=== PATIENT | male | born 1955 ===

== ENCOUNTER 2024-11-22 10:07 | Inpatient (IN) | payer BC, MEDICARE, OTHER ==
[2024-11-22 10:24] LABS: Glucose,Whole Blood 120 mg/dL (70-110)
--- NOTE | 2024-11-22 10:32 | ED ---
General Adult HPI - General Chief complaint: Altered Mental Status Stated complaint: ALTERED MENTAL Time Seen by Provider: 11/22/24 10:10 Source: patient, EMS, RN notes reviewed, old records reviewed Mode of arrival: EMS Limitations: altered mental status - History of Present Illness Initial comments: 69-year-old male presenting with altered mental status. Patient was found driving erratically. Patient is unable to give a detailed history of the time course. He answers questions inappropriately. Paramedics noted stable vitals and normal blood sugar. Uncertain about drugs or alcohol. Uncertain of baseline mental status. Patient denies pain complaints. - Related Data Home Medications Medication Instructions Recorded Confirmed Unable To Assess [Unable to Assess] 11/22/24 11/22/24 Allergies Allergy/AdvReac Type Severity Reaction Status Date / Time Unable to Assess Allergy Verified 11/22/24 10:16 Review of Systems ROS Statement: Those systems with pertinent positive or pertinent negative responses have been documented in the HPI. ROS Other: All systems not noted in ROS Statement are negative. Past Medical History Past Medical History: Unable to Obtain History of Any Multi-Drug Resistant Organisms: Unobtainable Past Surgical History: Unable to Obtain Past Psychological History: Unable to Obtain Smoking Status: Unknown if ever smoked Past Alcohol Use History: Unable to Obtain Past Drug Use History: Unable to Obtain General Exam Limitations: altered mental status General appearance: alert, in no apparent distress, anxious Head exam: Present: atraumatic, normocephalic Eye exam: Present: normal appearance, PERRL Neck exam: Present: normal inspection. Absent: tenderness, meningismus Respiratory exam: Present: normal lung sounds bilaterally. Absent: respiratory distress, wheezes Cardiovascular Exam: Present: regular rate, normal rhythm GI/Abdominal exam: Present: soft. Absent: distended Extremities exam: Present: normal inspection Neurological exam: Present: alert, CN II-XII intact, motor sensory deficit (Unable to answer questions, will follow simple commands, no focal findings.). Absent: oriented X3 Psychiatric exam: Present: agitated, anxious Course Vital Signs 11/22/24 11/22/24 10:11 11:30 Temperature 99.0 F Pulse Rate 82 76 Respiratory 20 18 Rate Blood Pressure 145/88 153/92 O2 Sat by Pulse 96 97 Oximetry Medical Decision Making - Medical Decision Making Was pt. sent in by a medical professional or institution (, PA, CESSPOOL CLEANER, urgent care, hospital, or skilled nursing...) When possible be specific @ -No Did you speak to anyone other than the patient for history (EMS, parent, family, police, friend...)? What history was obtained from this source @ -No Did you review nursing and triage notes (agree or disagree)? Why? @ -I reviewed and agree with nursing and triage notes Were old charts reviewed (outside hosp., previous admission, EMS record, old EKG, old radiological studies, urgent care reports/EKG's, skilled nursing records)? Report findings @ -No old charts were reviewed Differential Altered Mental Status: Hypoglycemia, DKA, hypercapnia, ETOH, overdose, CO poisoning, trauma, myxedema coma, HTN encephalopathy, infection, encephalitis, psychosis, intercranial hemorrhage, hepatic encephalopathy, meningitis, CVA, this is not meant to be an all-inclusive list EKG interpreted by me (3pts min.). @Ventricular rate 79, WA interval 178, QRS duration 93, QTc [address] segment elevation. X-rays interpreted by me (1pt min.). @ -Chest x-ray negative for acute cardiopulmonary findings CT interpreted by me (1pt min.). @CT and CT angiography of the brain are obtained which are negative for acute findings U/S interpreted by me (1pt. min.). @ -None done What testing was considered but not performed or refused? (CT, X-rays, U/S, labs)? Why? @ -None What meds were considered but not given or refused? Why? @ -None Did you discuss the management of the patient with other professionals (professionals i.e. , PA, CESSPOOL CLEANER, lab, RT, psych nurse, sr. social media & mobile manager, yeast culture operator, teacher, aadc plans staff officer, correctional case records supervisor)? Give summary @Dr. Grover Was smoking cessation discussed for >3mins.? @ -No Was critical care preformed (if so, how long)? @ -No Were there social determinants of health that impacted care today? How? (Homelessness, low income, unemployed, alcoholism, drug addiction, transportation, low edu. Level, literacy, decrease access to med. care, fdc, rehab)? @ -No Was there de-escalation of care discussed even if they declined (Discuss DNR or withdrawal of care, Hospice)? DNR status @ -No What co-morbidities impacted this encounter? (DM, HTN, Smoking, COPD, CAD, Cancer, CVA, ARF, Chemo, Hep., AIDS, mental health diagnosis, sleep apnea, morb id obesity)? @ -None Was patient admitted / discharged? Hospital course, mention meds given and rou te, prescriptions, significant lab abnormalities, going to OR and other pertinent info. @ -69-year-old male with altered mental status. Patient is confused. Has stable vitals, nonfocal exam. Uncertain how long this patient has had an altered mental status. Workup including CBC, CMP, is unremarkable. Urinalysis urine drug screen pending. Chest x-ray, CT CT angiography unremarkable. Patient admitted to internal medicine with neurology on consult. Undiagnosed new problem with uncertain prognosis? @ -No Drug Therapy requiring intensive monitoring for toxicity (Heparin, Nitro, Insulin, Cardizem)? @ -No Were any procedures done? @ -No Diagnosis/symptom? @Altered mental status Acute, or Chronic, or Acute on Chronic? @ -[Acute Uncomplicated (without systemic symptoms) or Complicated (systemic symptoms)? @ -Default Side effects of treatment? @ -No Exacerbation, Progression, or Severe Exacerbation? @ -No Poses a threat to life or bodily function? How? (Chest pain, USA, LA, pneumonia, PE, COPD, DKA, ARF, appy, cholecystitis, CVA, Diverticulitis, Homicidal, Suicidal, threat to staff... and all critical care pts) @ -No - Lab Data Result diagrams: 11/22/24 10:25 11/22/24 10:25 Lab Results 11/22/24 11/22/24 11/22/24 Range/Units 10:23 10:25 10:25 WBC 9.38 (4.50-10.00) 10*3/uL RBC 5.41 (4.40-5.60) 10*6/uL Hgb 16.1 (13.0-17.0) g/dL Hct 48.4 (39.6-50.0) % MCV 89.5 (80.0-97.0) fL MCH 29.8 (27.0-32.0) pg MCHC 33.3 (32.0-37.0) g/dL Plt Count 309 (140-440) 10*3/uL MPV 9.8 (9.5-12.2) fL Immature Gran % (Auto) 0.6 % Neutrophils % 65.5 % Lymphocytes % 20.4 % Monocytes % 9.9 % Eosinophils % 2.9 % Basophils % 0.7 % Immature Gran # 0.06 H (0.00-0.04) 10*3/uL Neutrophils # 6.14 (1.80-7.70) 10*3/uL Lymphocytes # 1.91 (0.90-5.00) 10*3/uL Monocytes # 0.93 (0.20-1.00) 10*3/uL Eosinophils # 0.27 (0.04-0.35) 10*3/uL Basophils # 0.07 (0.00-0.10) 10*3/uL PT 10.6 (10.0-12.5) sec INR 0.9 (<1.2) APTT 22.6 (22.0-30.0) sec Sodium (137-145) mmol/L Potassium (3.5-5.1) mmol/L Chloride (98-107) mmol/L Carbon Dioxide (22-30) mmol/L Anion Gap mmol/L BUN (9-20) mg/dL Creatinine (0.66-1.25) mg/dL Est GFR (CKD-EPI)AfAm (>60 ml/min/1.73 sqM) Est GFR (CKD-EPI)NonAf (>60 ml/min/1.73 sqM) Glucose (74-99) mg/dL POC Glucose (mg/dL) 120 H (70-110) mg/dL POC Glu Community Living Specialist ID Yamile Madsen Calcium (8.4-10.2) mg/dL Total Bilirubin (0.2-1.3) mg/dL AST (17-59) U/L ALT (4-49) U/L Alkaline Phosphatase (38-126) U/L Creatine Kinase (55-170) U/L Troponin I (0.000-0.034) ng/mL Total Protein (6.3-8.2) g/dL Albumin (3.5-5.0) g/dL Serum Alcohol mg/dL 11/22/24 11/22/24 Range/Units 10:25 10:25 WBC (4.50-10.00) 10*3/uL RBC (4.40-5.60) 10*6/uL Hgb (13.0-17.0) g/dL Hct (39.6-50.0) % MCV (80.0-97.0) fL MCH (27.0-32.0) pg MCHC (32.0-37.0) g/dL Plt Count (140-440) 10*3/uL MPV (9.5-12.2) fL Immature Gran % (Auto) % Neutrophils % % Lymphocytes % % Monocytes % % Eosinophils % % Basophils % % Immature Gran # (0.00-0.04) 10*3/uL Neutrophils # (1.80-7.70) 10*3/uL Lymphocytes # (0.90-5.00) 10*3/uL Monocytes # (0.20-1.00) 10*3/uL Eosinophils # (0.04-0.35) 10*3/uL Basophils # (0.00-0.10) 10*3/uL PT (10.0-12.5) sec INR (<1.2) APTT (22.0-30.0) sec Sodium 141 (137-145) mmol/L Potassium 4.4 (3.5-5.1) mmol/L Chloride 109 H (98-107) mmol/L Carbon Dioxide 21 L (22-30) mmol/L Anion Gap 11 mmol/L BUN 14 (9-20) mg/dL Creatinine 0.91 (0.66-1.25) mg/dL Est GFR (CKD-EPI)AfAm >90 (>60 ml/min/1.73 sqM) Est GFR (CKD-EPI)NonAf 87 (>60 ml/min/1.73 sqM) Glucose 104 H (74-99) mg/dL POC Glucose (mg/dL) (70-110) mg/dL POC Glu Community Living Specialist ID Calcium 9.8 (8.4-10.2) mg/dL Total Bilirubin 1.4 H (0.2-1.3) mg/dL AST 40 (17-59) U/L ALT 49 (4-49) U/L Alkaline Phosphatase 59 (38-126) U/L Creatine Kinase 156 (55-170) U/L Troponin I <0.012 (0.000-0.034) ng/mL Total Protein 7.1 (6.3-8.2) g/dL Albumin 4.3 (3.5-5.0) g/dL Serum Alcohol <10 mg/dL Disposition Clinical Impression: Altered mental status Disposition: ADMITTED IP TO THIS HOSP Condition: Stable Is patient prescribed a controlled substance at d/c from ED?: No Referrals: None,Stated [Primary Care Provider] - 1-2 days Time of Disposition: 13:54
[2024-11-22] MEDS: SODIUM CHLORIDE 0.9% 1,000 ML IV STA (10:36)
[2024-11-22 10:55] LABS: Basophils # (A) 0.07 10*3/uL (0.00-0.10); Basophils % (A) 0.7 %; Eosinophils # (A) 0.27 10*3/uL (0.04-0.35); Eosinophils % (A) 2.9 %; HCT 48.4 % (39.6-50.0); HGB 16.1 g/dL (13.0-17.0); Lymphocytes # (A) 1.91 10*3/uL (0.90-5.00); Lymphocytes % (A) 20.4 %; MCH 29.8 pg (27.0-32.0); MCHC 33.3 g/dL (32.0-37.0); MCV 89.5 fL (80.0-97.0); Monocytes # (A) 0.93 10*3/uL (0.20-1.00); Monocytes % (A) 9.9 %; Neutrophils # (A) 6.14 10*3/uL (1.80-7.70); Neutrophils % (A) 65.5 %; Platelet Count 309 10*3/uL (140-440); RBC 5.41 10*6/uL (4.40-5.60); RDW 14.2 % (11.5-14.5); WBC 9.38 10*3/uL (4.50-10.00)
[2024-11-22 11:05] LABS: ALT 49 U/L (4-49); African American GFR (CKD) >90 (>60 ml/min/1.73 sqM); Albumin 4.3 g/dL (3.5-5.0); Anion Gap 11 mmol/L; Blood Urea Nitrogen 14 mg/dL (9-20); Calcium 9.8 mg/dL (8.4-10.2); Carbon Dioxide 21 mmol/L (22-30); Chloride 109 mmol/L (98-107); Creatine Kinase 156 U/L (55-170); Glucose 104 mg/dL (74-99); Non-African American GFR(CKD) 87 (>60 ml/min/1.73 sqM); Sodium 141 mmol/L (137-145); Total Protein 7.1 g/dL (6.3-8.2)
[2024-11-22 11:12] LABS: AST 40 U/L (17-59); Alkaline Phosphatase 59 U/L (38-126); Potassium 4.4 mmol/L (3.5-5.1)
[2024-11-22 11:16] LABS: INR 0.9 (<1.2); Partial Thromboplastin Time 22.6 sec (22.0-30.0); Prothrombin Time 10.6 sec (10.0-12.5)
--- NOTE | 2024-11-22 11:35 | XR ---
EXAMINATION TYPE: XR chest 2V DATE OF EXAM: 11/22/2024 11:30 AM COMPARISON: None CLINICAL INDICATION: Male, 69 years old with history of altered mental status, confusion TECHNIQUE: AP and lateral views FINDINGS: Heart mildly enlarged. Low lung volumes. Mild interstitial density without consolidation or pleural e ffusion. IMPRESSION: Mild cardiomegaly with hypoventilatory changes and mild interstitial density. Correlate exclude mild CHF with pulmonary vascular congestion. [facility], Workstation: [facility], 11/22/2024 11:33 AM
--- NOTE | 2024-11-22 13:10 | CT ---
EXAMINATION TYPE: CT brain wo con DATE OF EXAM: 11/22/2024 12:44 PM COMPARISON: None. CLINICAL INDICATION: Male, 69 years old with history of Neuro deficit, acute, stroke suspected, AMS TECHNIQUE: CT of the brain is performed utilizing 3 mm thick sections through the posterior fossa and 3 mm thick sections through the remaining calvarium. Study is performed within 24 hours of arrival to the hospital. Contrast used: mL of , (none if empty) CT DLP: 1190.6 mGycm, Automated exposure control for dose reduction was used. FINDINGS: No abnormal hyperdensity is present to suggest an acute intracranial hemorrhage. No mass lesion is evident. No acute infarcts are evident. Periventricular white matter hypodensity is present, likely on the bas is of chronic white matter ischemic changes. Ventricles and sulci are prominent for the patient age. Paranasal sinuses and mastoid air cells within the [id number] are clear. IMPRESSION: 1. No acute intracranial process. Follow up MRI can be performed as clinically indicated. 2. Chronic appearing periventricular white matter ischemic changes with age related atrophy. [facility], , 11/22/2024 1:08 PM
[2024-11-22] MEDS ORDERED: NALOXONE 0.4 MG/ML 1 ML VIAL IV PRN (13:55)
--- NOTE | 2024-11-22 14:06 | P.HPIM ---
History of Present Illness 69-year-old male came in with altered mental status. His confusion appears to be more mostly drug-induced or medication induced as patient is awake alert hyperactive. Patient is conversing normally but speaking nonsense. CT of the h ead showed chronic microvascular ischemic changes. CT angio the head of neck is pending urine drug screen is pending. No information about his home medications at this time patient clinically does not appear to be septic does not have any fever he does not have a leukocytosis chest x-ray showed mild cardiomegaly with hypoventilatory changes patient's above-mentioned chest x-ray findings are seco ndary to his obesity rather than CHF. Patient does not appear to have any focal neurological deficits. Unable to obtain any review of systems because of his altered mental status REVIEW OF SYSTEMS: All other systems are negative except those mentioned in the HPI PHYSICAL EXAMINATION: GENERAL: The patient is alert hyperactive unable to assess orientation, not in any acute distress. Well developed, well nourished. HEENT: Pupils are round and equally reacting to light. EOMI. No scleral icterus. No conjunctival pallor. Normocephalic, atraumatic. No pharyngeal erythema. No thyromegaly. CARDIOVASCULAR: S1 and S2 present. No murmurs, rubs, or gallops. PULMONARY: Chest is clear to auscultation, no wheezing or crackles. ABDOMEN: Soft, nontender, nondistended, normoactive bowel sounds. No palpable organomegaly. MUSCULOSKELETAL: No joint swelling or deformity. EXTREMITIES: No cyanosis, clubbing, or pedal edema. NEUROLOGICAL: Gross neurological examination did not reveal any focal deficits. SKIN: No rashes. Assessment and plan -Altered mental status appears to be drug-induced, medication induced awaiting urine drug screen. Patient is nontoxic, low possibility of sepsis or stroke. -Rule out sepsis - Rule out stroke -Obesity possibility of sleep apnea DVT prophylaxis: Lovenox Past Medical History Past Medical History: Unable to Obtain History of Any Multi-Drug Resistant Organisms: Unobtainable Past Surgical History: Unable to Obtain Past Psychological History: Unable to Obtain Smoking Status: Unknown if ever smoked Past Alcohol Use History: Unable to Obtain Past Drug Use History: Unable to Obtain Medications and Allergies Home Medications Medication Instructions Recorded Confirmed Type Unable To Assess [Unable to Assess] 11/22/24 11/22/24 History Allergies Allergy/AdvReac Type Severity Reaction Status Date / Time Unable to Assess Allergy Verified 11/22/24 10:16 Physical Exam Vitals: Vital Signs Temp Pulse Resp BP Pulse Ox 11/22/24 11:30 76 18 153/92 97 11/22/24 10:11 99.0 F 82 20 145/88 96 Intake and Output 11/21/24 11/22/24 11/22/24 22:59 06:59 14:59 Other: Weight 111.13 kg Results CBC & Chem 7: 11/22/24 10:25 11/22/24 10:25 Labs: Abnormal Lab Results - Last 24 Hours (Table) 11/22/24 11/22/24 11/22/24 Range/Units 10:23 10:25 10:25 Immature Gran # 0.06 H (0.00-0.04) 10*3/uL Chloride 109 H (98-107) mmol/L Carbon Dioxide 21 L (22-30) mmol/L Glucose 104 H (74-99) mg/dL POC Glucose (mg/dL) 120 H (70-110) mg/dL Total Bilirubin 1.4 H (0.2-1.3) mg/dL
--- NOTE | 2024-11-22 14:10 | CT ---
EXAMINATION TYPE: CT angio head neck DATE OF EXAM: 11/22/2024 12:44 PM COMPARISON: None. CLINICAL INDICATION: Male, 69 years old with history of Neuro deficit, acute, stroke suspected, AMS TECHNIQUE: CTA scan is performed with axial images are obtained, coronal and sagittal reformatted cecil ges are reviewed. MIP images created on a separate workstation and submitted for review. 3-D reconstr ucted images are not available due to ISP error. Source images are reviewed. NASCET criteria was use d in interpretation of this exam? Contrast used:65ml mL of Isovue 370 with IV Contrast, (none if empty) Oral contrast used: (none if empty) CT DLP: 1041.4 mGycm, Automated exposure control for dose reduction was used. FINDINGS: Carotid/Vascular Structures: There is a common origin of the left common carotid artery and the right subclavian artery. Vertebral arteries appear codominant. Common carotid arteries bifurcate into inte rnal and external carotid artery. Internal carotid arteries are patent to the skull base. No signific ant flow-limiting stenosis evident Cervical of James: Vertebral basilar system appears normal. Posterior cerebral vasculature is unrema rkable. Internal carotid arteries bifurcate normally into A1 and M1 segments. A2 segments are normal. The anterior communicating artery is patent. The right posterior communicating artery is patent. The left posterior communicating artery is patent. IMPRESSION: 1. No flow-limiting stenosis bilateral carotid bifurcations. 2. Normal [place] of [place] [facility], , 11/22/2024 2:08 PM
[2024-11-22] MEDS: SODIUM CHLORIDE 0.9% 1,000 ML IV SCH (16:16)
[2024-11-23 03:36] LABS: Bilirubin,Urine Negative (Negative); Blood,Urine Negative (Negative); Color,Urine Yellow; Glucose,Urine (UA) Negative (Negative); Ketones,Urine Negative (Negative); Leukocyte Esterase,Urine Negative (Negative); Nitrite,Urine Negative (Negative); PH, Urine 6.0 (5.0-8.0); Protein,Urine Trace (Negative); Urobilinogen,Urine 4.0 mg/dL (<2.0)
[2024-11-23 03:48] LABS: Specific Gravity,Urine 1.046 (1.001-1.035)
[2024-11-23 04:01] LABS: Barbiturate Screen,Urine Not Detected (NotDetected); Benzodiazepines Screen,Urine Not Detected (NotDetected); Opiate Screen,Urine Not Detected (NotDetected); Oxycodone Screen, Urine Not Detected (NotDetected); Phencyclidine Screen,Urine Not Detected (NotDetected); Tricyclic Antidepressant,Urine Not Detected (NotDetected); Urn Cannabinoid Scrn Not Detected (NotDetected)
[2024-11-23] MEDS: ENOXAPARIN 60 MG/0.6 ML SYRINGE SQ SCH (08:53)
[2024-11-23] MEDS ORDERED: OLANZapine 10 MG VIAL IM PRN (12:10)
--- NOTE | 2024-11-23 12:30 | P.CN ---
Psychiatric Consult - . Consult date: 11/23/24 Consult:: 11/23/24 11:44 IDENTIFYING DATA: This patient is a 69-year-old male, single, has no kids REASON FOR REFERRAL: Psychiatry was consulted for "AMS, labile" HISTORY OF PRESENT ILLNESS: The patient presented to the hospital on 11/22 via EMS for altered mental status. Patient apparently was driving erratically, was a poor historian when he came into the hospital was inappropriate unable to answer questions. Blood alcohol level was negative urine drug screen was negative, patient had a CT scan of the brain which did not have any significant findings. Patient's urine analysis was also negative. Patient was seen today at the bedside he had a one-to-one sitter. He appeared to be fairly obese, unkempt appearance. He was watching television. He waived back at technical document writer stated his name several times during the conversation. He was perseverating on answers repeating himself. He was inappropriate at times and appeared to be fairly impulsive with his actions. He believed that he was "65 years old" does not know his date of . He responded to the saying that "I was little". He does not know today's date. Does not know where he is currently or the situation that brought him into the hospital. He had poor attention span, was alert. He denied any depression or anxiety. Gave very short answers concrete. Denies any issues with sleep or appetite. He was not able to identify any objects in the room. He had 0 out of 3 word memory recall after 5 minutes. He was a very poor historian. At this time patient denies any suicidal or homical ideations, intent or plan. Patient denies any auditory, visual hallucinations and denies any paranoia or delusions. Patients admits to using no recreational drugs, as stated urine drug screen is negative PAST PSYCHIATRIC HISTORY: Patient was not able to provide any past psychiatric history, denies at all. PAST MEDICAL HISTORY: As per medical H&P ALLERGIES: as per EMR. CHEMICAL DEPENDENCY HISTORY: as per HPI. FAMILY PSYCHIATRIC/SUBSTANCE USE HISTORY: Denies SOCIAL HISTORY: Patient was not able to give any social history at this time. MENTAL STATUS EXAM: General Appearance: Patient appears to be obese, longer hair, unkempt appearance stated age is alert, impulsive, confused. Patient appears to have poor hygiene and grooming wearing hospital gown with fair eye contact. Behavior: Patient is lying in bed without any agitated behavior. Poor attention span, impulsive Speech: Patient's speech is concrete, repetitive, perseverating Mood/Affect: Patient reports their mood is "ok", affect is congruent Suicidality/Homicidality: Patient denies having any suicidal or homicidal ideation intent or plan. Perceptions: Patient denies any visual hallucinations and denies any auditory hallucinations Though content/process: Perseverating, fairly concrete, poor historian Memory and concentration: AOX1, to name only, poor attention span, 0 out of 3 memory recall words after 5 minutes. Cannot spell "WORLD" backwards. Not able to identify any objects, only follow simple commands Judgment and insight: Poor/impulsive IMPRESSIONS: Delirium, unknown etiology PLAN: -At this time patient DOES NOT meet criteria for inpatient psychiatric admission. -Patient DOES NOT have decision making capacity at this time and is unable to reason through and communicate/appreciate the risks, benefits and alternatives to treatment. -Delirium precautions recommended with patient including - avoiding use of narcotics and DEMO EVENT SPECIALIST sedatives, limit anticholinergic medications when possible, frequent re-orientation, minimize use of restraints, open window shades during the day and close them at night -Would recommend the following medication changes/additions: Seroquel 50 mg nightly for mood stabilization/insomnia, Seroquel 3 times daily as needed for agitation, Zyprexa IM 3 times daily as needed for severe agitation/aggression -Continue 1:1 sitter for safety -Military Professional spoke with hospitalist about patient's condition and likely the need for further workup including neurology consultation for MRI, other lab work and EEG if needed -check syphillis test, folic acid and b12 levels -Communicated plan to patient's nurse -Will continue to follow along if needed -Please contact with any questions. 11/23/24 12:13 11/23/24 12:15 11/23/24 12:19
[2024-11-23] MEDS: QUEtiapine 50 MG TAB PO SCH (21:31)
--- NOTE | 2024-11-24 04:09 | P.PN ---
Subjective Progress Note Date: 11/23/24 69-year-old male came in with altered mental status. His confusion appears to be more mostly drug-induced or medication induced as patient is awake alert hyperactive. Patient is conversing normally but speaking nonsense. CT of the head showed chronic microvascular ischemic changes. CT angio the head of neck is pending urine drug screen is pending. No information about his home medications at this time patient clinically does not appear to be septic does not have any fever he does not have a leukocytosis chest x-ray showed mild cardiomegaly with hypoventilatory changes patient's above-mentioned chest x-ray findings are secondary to his obesity rather than CHF. Patient does not appear to have any focal neurological deficits. Unable to obtain any review of systems because of his altered mental status 11/23/2024 Patient seen and evaluated in follow-up with sitter at the bedside as patient continues to have erratic behavior and refusing most treatment. Psychiatry consulted for further evaluation and altered mentation. Patient continues to be somewhat altered and confused was talking more. Will also consult neurology and appreciate input and recommendations. Case management/social work consulted as well. Patient is afebrile denies chest pain or shortness of breath. Patient is tolerating diet with no reported nausea or vomiting. Recommend follow-up labs and replace electrolytes as needed. Encourage daily hygiene as patient is odorous and unkempt. Review of systems: Constitutional: No reports of fatigue, fever, or chills Cardiovascular: No reports of chest pain or palpitations Respiratory: No reports of shortness of breath or cough GI: No reports of nausea, vomiting, or diarrhea : Patient reports was having painful urination Neurovascular: No reports of weakness or numbness All medications have been reviewed All other systems are negative except those mentioned in the HPI PHYSICAL EXAMINATION: GENERAL: The patient is alert, x 1, hyperactive, unable to assess orientation, not in any acute distress. Well developed, well nourished. Unkempt, odorous morbidly obese HEENT: Pupils are round and equally reacting to light. EOMI. No scleral icterus. No conjunctival pallor. Normocephalic, atraumatic. No pharyngeal erythema. No thyromegaly. CARDIOVASCULAR: S1 and S2 muffled PULMONARY: Chest is clear to auscultation, no wheezing or crackles. ABDOMEN: Soft, obese, nontender, nondistended, normoactive bowel sounds. No palpable organomegaly. MUSCULOSKELETAL: No joint swelling or deformity. EXTREMITIES: No cyanosis, clubbing, or pedal edema. NEUROLOGICAL: Gross neurological examination did not reveal any focal deficits. SKIN: No rashes. Assessment: -Altered mental status, possible metabolic/toxic encephalopathy appears to be drug-induced, medication induced awaiting urine drug screen. Patient is nontoxic, low possibility of sepsis or stroke. -Rule out sepsis -Rule out stroke -Obesity possibility of sleep apnea - GI prophylaxis -DVT prophylaxis: Lovenox - Full code Plan: Patient was admitted with altered mentation with erratic hyperactive behavior with concerns of possible medication or drug induced alteration although patient reports is not taking any medications and denies any drug use Patient reports, in third person, that he came here for painful urination although urinalysis was negative. When asking again patient denies any pain with urination Sitter at bedside and social work is consulted along with neurology and psychia try for further evaluation. Will follow-up on repeat labs and continue to monitor closely. Patient is not allowed to leave AGAINST MEDICAL ADVICE given his mentation. Patient is not able to make any decision making time and may need a guardian. Patient denies having any family or friends nearby and reports to living in multiple places. Unsure if patient is homeless The impression and plan of care has been dictated by Riddhi Lee, Nurse Practitioner as directed. Dr. Lenore MD I have performed a history and examination and MDM of this patient, discussed the same with the dictator, and agree with the dictator's assessment and plan as written ,documented as a scribe. Based on total visit time, I have performed more than 50% of the visit. Objective - Vital Signs Vital signs: Vital Signs Temp 97.3 F L 11/23/24 07:22 Pulse 66 11/23/24 07:22 Resp 15 11/23/24 07:22 BP 162/80 11/23/24 07:22 Pulse Ox 99 11/23/24 07:22 FiO2 Intake & Output 11/22/24 11/23/24 11/23/24 18:59 06:59 18:59 Intake Total 540 Balance 540 Weight 111.13 kg 111.13 kg Intake: Oral 540 Other: # Voids 3 - Labs CBC & Chem 7: 11/22/24 10:11/22/24 10:25 Labs: Abnormal Lab Results - Last 24 Hours (Table) 11/22/24 11/22/24 11/23/24 Range/Units 10: 10: 02:00 Immature Gran # 0.06 H (0.00-0.04) 10*3/uL Chloride 109 H (98-107) mmol/L Carbon Dioxide 21 L (22-30) mmol/L Glucose 104 H (74-99) mg/dL Total Bilirubin 1.4 H (0.2-1.3) mg/dL Ur Specific [place] 1.046 H (1.001-1.035) Urine Protein Trace H (Negative)
[2024-11-24 10:00] LABS: Magnesium 2.4 mg/dL (1.5-2.4); Vitamin B12 275.0 pg/mL (200.0-944.0)
[2024-11-24 10:11] LABS: Anion Gap 12.60 mmol/L (4.00-12.00); BUN/Creat Ratio 10.22 Ratio (12.00-20.00); Blood Urea Nitrogen 9.2 mg/dL (9.0-27.0); Calcium 9.2 mg/dL (8.7-10.3); Carbon Dioxide 22.4 mmol/L (21.6-31.8); Chloride 106 mmol/L (96-109); Glucose 99 mg/dL (70-110); Potassium 4.5 mmol/L (3.5-5.5); Sodium 141 mmol/L (135-145)
--- NOTE | 2024-11-24 11:09 | P.CNNES ---
History of Present Illness Consult date: 11/23/24 Requesting physician: Jazmin Grover Reason for Consult: Altered mental status History of Present Illness: Patient is a 69-year-old right-handed male came to the hospital by ambulance yesterday at 10:07 AM for altered mental status. Patient at present is severely confused, not able to provide history as per examination below. Per nursing staff, patient has been very confused, gets agitated. 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 Paramedics were concerned if patient was having diabetic issues. Warner states that the patient was driving erratically and he pulled him over. Upon questioning, the patient seemed confused and was diaphoretic. Patient was alert oriented x 1. Patient was able to tell his name, but answers other questions inappropriately. Patient denied any complaints at that time when asked. Patient told deputy that he has not taken his medications this morning and has not eaten. Upon EMS asking questions, patient gave different answers and seemed to grow more confused and agitated during the transport. Patient was loaded onto the stretcher and secured. Patient's blood pressure was 150/86 at the scene, respiration 20, saturation 97%. Blood glucose was 117. EKG showed sinus rhythm. Chest x-ray revealed mild cardiomegaly with hypoventilatory changes and mild interstitial density. Correlate to exclude mild CHF with pulmonary vascular congestion. CT head showed no acute intracranial process. Chronic appearing periventricular white matter ischemic changes with age-related atrophy. CTA of head and neck revealed no flow-limiting stenosis bilateral carotid bifurcations. Normal [place]. Home medications include none available. Patient has been seen by psychiatrist, diagnosed with delirium, unknown etiology. Patient does not have decision- making capacity. Patient started on Seroquel 50 mg nightly for mood stabilization/insomnia. Also committed neurology consideration for MRI, lab work and EEG. B12, folate and RPR were tested. Patient admits to having headache nodding "yes". On asking how severe it is, patient touched his head and said "that is it". Please refer to examination below in detail. Patient denies tobacco use. States he used to smoke but has quit tobacco use. "It has been a while". He did not smoke a lot before. Denies any alcohol or drug use. Review of Systems ROS unobtainable: due to mental status Past Medical History Past Medical History: Unable to Obtain History of Any Multi-Drug Resistant Organisms: Unobtainable Past Surgical History: Unable to Obtain Past Psychological History: Unable to Obtain Smoking Status: Unknown if ever smoked Past Alcohol Use History: Unable to Obtain Past Drug Use History: Unable to Obtain Medications and Allergies Home Medications Medication Instructions Recorded Confirmed Type Unable To Assess [Unable to Assess] 11/22/24 11/22/24 History Allergies Allergy/AdvReac Type Severity Reaction Status Date / Time Unable to Assess Allergy Verified 11/22/24 10:16 Physical Examination - Vital Signs Vital Signs: Vital Signs Temp Pulse Pulse Resp BP BP BP 11/23/24 14:00 97.4 F L 87 16 144/87 11/23/24 07:22 97.3 F L 66 15 162/80 11/23/24 05:30 97.5 F L 73 18 143/93 11/22/24 20:00 18 11/22/24 19:20 97.4 F L 72 18 138/65 11/22/24 18:31 97.8 F 62 18 124/82 Pulse Ox 11/23/24 14:00 100 11/23/24 07:22 99 11/23/24 05:30 99 11/22/24 20:00 11/22/24 19:20 98 11/22/24 18:31 99 Intake and Output 11/23/24 11/23/24 11/23/24 06:59 14:59 22:59 Intake Total 236 Balance 236 Intake: Oral 236 Other: # Voids 3 Patient is an elderly male, who is sitting in the recliner, in no acute distress. Patient appears slightly delirious, hyper attentive hyperalert. Patient is alert awake oriented x 1. He knows his name Juan Shields but when asked his age, patient said "shit I do not know". "I got to figure it out". Then he said "56 hours". He could not tell current building he is in or the city and would just say "I do not know". He would say random sentence like "this is little different". Then he said "he pulls up, took the car and put the thing here". Regarding date of , patient said 04/20, then said then . He appears to be hard of hearing but has some problem with comprehension. He tells me he has 3 children Gómez Recinos and Stuart. He could not tell name of the current president saying "I do not know", and said "you understand". Patient able to name simple objects like pen, pair of glasses, knuckles, ear but not the lobe. He could not repeat. Attention, concentration and fund of knowledge are all severely limited. On cranial nerve examination, pupils are equal, round and reacting to light, visual allan are full on confrontation, with no neglect on double simultaneous stimulation. Extraocular muscles are intact with no nystagmus. Face is symmetric, tongue protrudes to the midline. Palatal elevation and sensation normal, hearing is severely decreased it appears and shoulder shrug normal, facial sensation normal. On muscle strength testing, there is no pronator drift and the strength is normal in arms and legs distally and proximally. Deep tendon reflexes are symmetric trace at the biceps, 0 brachioradialis, 1 at the knees and plantars downgoing bilaterally. Sensory to touch is equal with no neglect on double simultaneous stimulation. Cerebellar function showed no ataxia for [id number] testing. No dysdiad ochokinesia. Patient did not cooperate with [id number] testing. Tone and bulk of muscles normal. Gait deferred.. On general examination, there is no carotid bruit or murmur, S1-S2 audible. Chest is clear on consultation. Abdomen is soft nontender. No organomegaly, bowel sounds present. Peripheral pulses are present. No peripheral edema. Results - Laboratory Findings CBC and BMP: 11/22/24 10:25 11/24/24 05:30 Abnormal Lab Findings: Abnormal Labs 11/22/24 11/22/24 11/22/24 10:23 10:25 10:25 Immature Gran # 0.06 H Chloride 109 H Carbon Dioxide 21 L Glucose 104 H POC Glucose (mg/dL) 120 H Total Bilirubin 1.4 H Ur Specific [place] Urine Protein 11/23/24 02:00 Immature Gran # Chloride Carbon Dioxide Glucose POC Glucose (mg/dL) Total Bilirubin Ur Specific [place] 1.046 H Urine Protein Trace H Assessment and Plan Assessment: * Acute delirium with altered mental status, with agitation. Probable acute psychosis. Exact cause is uncertain. No obvious metabolic causes identified. * X-tobacco use Plan: * MRI of the brain with and without contrast * EEG evaluate for encephalopathy, rule out any epileptiform activity * Agree with checking B12, folate, TSH, RPR. * Psychiatry is also on board. * No signs of infection at this time, with normal temperature and white cells. We will hold off on LP. * I tried to call family members to obtain collateral history. Apparently the only number listed in the demographics is disconnected number. * Neurology will follow. Thank you for the consult. Time with Patient: Greater than 30
--- NOTE | 2024-11-24 13:55 | P.PN ---
Progress Note - Text Progress Note Date: 11/24/24 Interval history: Patient was seen today for psychiatric follow-up. Patients nurse claims that the patient refused the EEG and also the MRI has been refusing medications. Patient was seen sitting at the side of his bed, he appeared to be more awake today continues to be impulsive, at times difficult to redirect. He was waving his arms around at times and pointing to his IV lying. He continues to speak nonsensically at times inappropriate answers. He knows his name, when asked about today's date he states that "it is today". He does not know the location where he is at. Continues to be impulsive and irritable at times. Very poor understanding of his condition and need for treatment and testing. Denying any auditory or visual hallucinations denies any suicidal or homicidal ideations intent or plan. MENTAL STATUS EXAM: General Appearance: Patient appears to be obese, longer hair, unkempt appearance stated age is alert, impulsive, confused. Patient appears to have improving hygiene and grooming wearing hospital gown with fair eye contact. Behavior: Patient is lying in bed without any agitated behavior. Poor attention span, impulsive and irritable Speech: Patient's speech is concrete, repetitive, perseverating Mood/Affect: Patient reports their mood is "fine ", affect is congruent Suicidality/Homicidality: Patient denies having any suicidal or homicidal ideation intent or plan. Perceptions: Patient denies any visual hallucinations and denies any auditory hallucinations Though content/process: Perseverating, fairly concrete, poor historian Memory and concentration: AOX1, to name only, poor attention span Judgment and insight: Poor/impulsive IMPRESSIONS: Delirium, unknown etiology r/o aphasia PLAN: -At this time patient DOES NOT meet criteria for inpatient psychiatric admission. -Patient DOES NOT have decision making capacity at this time and is unable to reason through and communicate/appreciate the risks, benefits and alternatives to treatment. -Delirium precautions recommended with patient including - avoiding use of narcotics and VICTIM ADVOCATE sedatives, limit anticholinergic medications when possible, frequent re-orientation, minimize use of restraints, open window shades during the day and close them at night -Would recommend the following medication changes/additions: Seroquel 50 mg nightly for mood stabilization/insomnia, Seroquel 3 times daily as needed for agitation, Zyprexa IM 3 times daily as needed for severe agitation/aggression. added order zyprexa IM prn for agitation due to procedure/testing. -Continue 1:1 sitter for safety -appreciate neurology recs and still awaiting MRI, EEG. please re-attempt eeg after partient receives prn medication - syphillis test, folic acid and b12 levels - WNL -Communicated plan to patient's nurse -Will continue to follow along if needed -Please contact with any questions.
--- NOTE | 2024-11-24 18:20 | P.PN ---
Subjective Progress Note Date: 11/24/24 Patient was seen for follow-up. Patient sitting in the bed appears comfortable. Informed him that we could not perform any test today. He then started hitting his head became agitated saying that everything is okay in here. Patient appeared very agitated in just a second. Objective - Vital Signs Vital signs: Vital Signs Temp 98.6 F 11/24/24 13:07 Pulse 77 11/24/24 13:07 Resp 17 11/24/24 13:07 BP 146/75 11/24/24 13:07 Pulse Ox 100 11/24/24 13:07 FiO2 Intake & Output 11/23/24 11/24/24 11/24/24 18:59 06:59 18:59 Intake Total 236 540 400 Balance 236 540 400 Intake: Oral 236 540 400 Other: # Voids 7 4 - Exam As above. - Labs CBC & Chem 7: 11/22/24 10:25 11/24/24 05:30 Labs: Abnormal Lab Results - Last 24 Hours (Table) 11/24/24 Range/Units 05:30 Anion Gap 12.60 H (4.00-12.00) mmol/L BUN/Creatinine Ratio 10.22 L (12.00-20.00) Ratio Assessment and Plan Assessment: * Acute delirium with altered mental status, with agitation. Probable acute psychosis. Exact cause is uncertain. No obvious metabolic causes identified. * X-tobacco use * Borderline B12/folate. Plan: * None of the tests could not be performed today. Suspect acute psychosis with agitation. * MRI of the brain with and without contrast * EEG evaluate for encephalopathy, rule out any epileptiform activity * B12 275, folate 7.7, TSH 4.5, hemoglobin A1c 5.7. RPR nonreactive. Patient's B12 and folate level are borderline. We will start replacement. * Psychiatry is also on board. * No signs of infection at this time, with normal temperature and white cells. No indication for LP at this time. * I tried to call family members to obtain collateral history. Apparently the only number listed in the demographics is disconnected number. * Neurology will follow.
[2024-11-24] MEDS: FOLIC ACID 1 MG TAB PO SCH (18:32)
[2024-11-24] MEDS: CYANOCOBALAMIN 500 MCG TAB PO SCH (18:32)
--- NOTE | 2024-11-24 22:40 | P.PN ---
Subjective Progress Note Date: 11/24/24 69-year-old male came in with altered mental status. His confusion appears to be more mostly drug-induced or medication induced as patient is awake alert hyperactive. Patient is conversing normally but speaking nonsense. CT of the head showed chronic microvascular ischemic changes. CT angio the head of neck is pending urine drug screen is pending. No information about his home medications at this time patient clinically does not appear to be septic does not have any fever he does not have a leukocytosis chest x-ray showed mild cardiomegaly with hypoventilatory changes patient's above-mentioned chest x-ray findings are secondary to his obesity rather than CHF. Patient does not appear to have any focal neurological deficits. Unable to obtain any review of systems because of his altered mental status 11/23/2024 Patient seen and evaluated in follow-up with sitter at the bedside as patient continues to have erratic behavior and refusing most treatment. Psychiatry consulted for further evaluation and altered mentation. Patient continues to be somewhat altered and confused was talking more. Will also consult neurology and appreciate input and recommendations. Case management/social work consulted as well. Patient is afebrile denies chest pain or shortness of breath. Patient is tolerating diet with no reported nausea or vomiting. Recommend follow-up labs and replace electrolytes as needed. Encourage daily hygiene as patient is odorous and unkempt. 11/24/2024 Patient is seen in follow-up today continues with the sitter at the bedside much more pleasant and having more conversation although continues to be confused and altered. Patient's vital signs are stable and patient is afebrile. Repeat labs this morning reveal a sodium of 141 with a potassium of 4.5, BUN is 9.2 with a creatinine of 0.9, hemoglobin A1c is 5.7, TSH within normal limits at 4.5, treponema screening is negative. Neurology attempted an EEG and has ordered an MRI although patient has refused and is refusing most medications and treatments. Psych to reevaluate the patient as well. IM medications given per psychiatry. Review of systems: Constitutional: No reports of fatigue, fever, or chills Cardiovascular: No reports of chest pain or palpitations Respiratory: No reports of shortness of breath or cough GI: No reports of nausea, vomiting, or diarrhea : Patient reports was having painful urination Neurovascular: No reports of weakness or numbness All medications have been reviewed All other systems are negative except those mentioned in the HPI PHYSICAL EXAMINATION: GENERAL: The patient is alert, x 1, hyperactive, unable to assess orientation, not in any acute distress. Well developed, well nourished. Unkempt, less odorous, morbidly obese HEENT: Pupils are round and equally reacting to light. EOMI. No scleral icterus. No conjunctival pallor. Normocephalic, atraumatic. No pharyngeal erythema. No thyromegaly. CARDIOVASCULAR: S1 and S2 muffled PULMONARY: Chest is clear to auscultation, no wheezing or crackles. ABDOMEN: Soft, obese, nontender, nondistended, normoactive bowel sounds. No palpable organomegaly. MUSCULOSKELETAL: No joint swelling or deformity. EXTREMITIES: No cyanosis, clubbing, or pedal edema. NEUROLOGICAL: Gross neurological examination did not reveal any focal deficits. SKIN: No rashes. Assessment: -Altered mental status, possible metabolic/toxic encephalopathy appears to be drug-induced, medication induced awaiting urine drug screen. Patient is nontoxic, low possibility of sepsis or stroke. -Ruled out sepsis as patient remains afebrile and white count is not elevated -Rule out stroke, MRI ordered and pending with nephrology following although patient is refusing -Obesity possibility of sleep apnea - GI prophylaxis -DVT prophylaxis: Lovenox - Full code Plan: Patient was admitted with altered mentation with erratic hyperactive behavior with concerns of possible medication or drug induced alteration although patient reports is not taking any medications and denies any drug use. Patient appears to be in psychosis Patient reports, in third person, that he came here for painful urination although urinalysis was negative. When asking again patient denies any pain with urination Sitter at bedside and social work is consulted and awaiting updated notes from psychiatry as well as neurology, may need IM medications to sedate for the procedure Will follow-up on repeat labs and continue to monitor closely. Patient is not allowed to leave AGAINST MEDICAL ADVICE given his mentation. Patient is not able to make any medical decisions at this time and may need a guardian. Patient denies having any family or friends nearby and reports to living in multiple places. Unsure if patient is homeless Patient refused EEG and MRI is ordered and pending, unsure if patient will be compliant and as needed IM medications have been ordered The impression and plan of care has been dictated by Riddhi Lee Nurse Pra ctitioner as directed. Dr. Lenore MD I have performed a history and examination and MDM of this patient, discussed the same with the dictator, and agree with the dictator's assessment and plan as written ,documented as a scribe. Based on total visit time, I have performed more than 50% of the visit. Objective - Vital Signs Vital signs: Vital Signs Temp 97.5 F L 11/24/24 07:05 Pulse 81 11/24/24 07:05 Resp 16 11/24/24 07:05 BP 131/87 11/24/24 07:05 Pulse Ox 98 11/24/24 07:05 FiO2 Intake & Output 11/23/24 11/24/24 11/24/24 18:59 06:59 18:59 Intake Total 236 540 200 Balance 236 540 200 Intake: Oral 236 540 200 Other: # Voids 7 4 - Labs CBC & Chem 7: 11/22/24 10:25 11/24/24 05:30 Labs: Abnormal Lab Results - Last 24 Hours (Table) 11/24/24 Range/Units 05:30 Anion Gap 12.60 H (4.00-12.00) mmol/L BUN/Creatinine Ratio 10.22 L (12.00-20.00) Ratio
[2024-11-25] MEDS: OLANZapine 10 MG VIAL IM PRN (06:56)
--- NOTE | 2024-11-25 12:02 | EEG ---
ELECTROENCEPHALOGRAM REPORT PREAMBLE: This is a 69-year-old male with altered mental status, aggression. EEG FINDINGS: This is a 21-channel digital EEG recorded with video component, utilizing 10/20 international system with referential and bipolar montages. The background consists of moderately well-developed and regulated, predominantly 6 hertz theta activity seen in bihemispheric region. Occasionally, the background reaches to 8 hertz alpha as well. The background seems to be very slightly reactive to eye opening and closing. Photic driving response was not seen. Different stages of sleep were not seen. No focal or generalized epileptiform activity was seen. No electrographic seizure was recorded. IMPRESSION: This is an abnormal EEG due to background slowing, suggestive of mild encephalopathy. No focal, lateralized or epileptiform activity was seen. MMODL / IJN: [id number] /
--- NOTE | 2024-11-25 13:46 | CT ---
EXAMINATION TYPE: CT brain wo con CT DLP: 1116.0 mGycm, Automated exposure control for dose reduction was used. DATE OF EXAM: 11/25/2024 1:40 PM COMPARISON: CT brain 11/22/2024, CTA head and neck 11/22/2024 CLINICAL INDICATION:Male, 69 years old with history of Follow up AMS, AMS TECHNIQUE: Brain: Multiple axial CT images of the brain were obtained without IV contrast. . Coronal and sagitta l reformats reviewed. FINDINGS: Brain: Extra-axial spaces: No abnormal extra-axial fluid collections. Ventricular system: Dilatation in proportion to cerebral atrophy. Cerebral parenchyma: Cerebral atrophy. No acute intraparenchymal hemorrhage or mass effect. The cleveland -white junction is well differentiated. Scattered hypoattenuating areas are seen within the periventr icular subcortical white matter. Cerebellum: Unremarkable. Mass effect: No evidence of midline shift. Intracranial vasculature: Atherosclerotic calcifications of the intracranial vessels. Soft tissues: Normal. Calvarium/osseous structures: No depressed skull fracture. Paranasal sinuses and mastoid air cells: The mastoid air cells are clear. Subcentimeter mucous retent ion cyst within the inferior left maxillary sinus. Minimal mucosal thickening of the inferior right f rontal sinus and bilateral anterior ethmoid sinuses. The remaining paranasal sinuses are clear. Visualized orbits: Orbital contents are intact. IMPRESSION: 1. No acute intracranial process or significant change from prior. 2. Cerebral atrophy with nonspecific white matter changes, likely secondary to chronic small vessel i schemic disease. [facility], , 11/25/2024 1:43 PM
--- NOTE | 2024-11-25 14:06 | P.PN ---
Progress Note - Text Progress Note Date: 11/25/24 Interval history: Patient was seen today for psychiatric follow-up. Rock Picker spoke with Dr. Isabella lema neurologist over the phone to speak about patient's treatment plan and further investigations. EEG was completed this morning and did show mild encephalopathy. Patient's nurse claims the patient continues to be unpredictable, bizarre and inappropriate in his answers. Patient did take the Seroquel dose last night. He tolerated it well. Patient was seen today laying in bed he appeared to have improvement in his hygiene and grooming, appeared to have improvement in his cooperation today and appeared to be mildly less irritable than yesterday. He denied any issues today denies any depression or anxiety. He appeared to be less unpredictable, endorsing any agitation. His answers appeared to be a bit more appropriate today he was able to identify some objects and inform science writer of what he ate for lunch today. He continues to be alert and oriented x 1 however does know that he is in "the hospital". He does not know why he is in the hospital still. He continues to have a one-to-one sitter. Impulsivity improving. Denying any auditory or visual hallucinations denies any suicidal or homicidal ideations intent or plan. MENTAL STATUS EXAM: General Appearance: Patient appears to be obese, longer hair, unkempt appearance stated age is alert, impulsive, improving compared to yesterday. Patient appears to have improving hygiene and grooming wearing hospital gown with fair eye c ontact. Behavior: Patient is lying in bed without any agitated behavior. Improving attention span, less impulsive and less irritable Speech: Patient's speech is concrete, repetitive, improving and more appropriate answers. Mood/Affect: Patient reports their mood is "ok ok", affect is congruent Suicidality/Homicidality: Patient denies having any suicidal or homicidal ideation intent or plan. Perceptions: Patient denies any visual hallucinations and denies any auditory hallucinations Though content/process: less Perseverating, fairly concrete, poor historian, more appropriate answers Memory and concentration: AOX1, he knows that he is in the hospital. He knows his correct name. Improving mildly attention span Judgment and insight: Poor/impulsive, improving mildly IMPRESSIONS: Delirium, unknown etiology, improving mildly r/o aphasia PLAN: -At this time patient DOES NOT meet criteria for inpatient psychiatric admission HOWEVER will continue to follow along tomorrow to see if patient is repsonding to treatment or not and can consider inpatient psych hospiatlization if it is felt necessary. -Patient DOES NOT have decision making capacity at this time and is unable to reason through and communicate/appreciate the risks, benefits and alternatives to treatment. -Delirium precautions recommended with patient including - avoiding use of narcotics and JEWELRY MAKING INSTRUCTOR sedatives, limit anticholinergic medications when possible, frequent re-orientation, minimize use of restraints, open window shades during the day and close them at night -Would recommend the following medication changes/additions: increase Seroquel 50 mg daily + 100 mg nightly for mood stabilization/insomnia, Seroquel 3 times daily as needed for agitation, Zyprexa IM 3 times daily as needed for severe agitation/aggression. -Continue 1:1 sitter for safety -appreciate neurology recs and eeg interpretation shows mild encephalopathy, showing background slowing. Neurology checking NMDA - receptor antibodies, send out lab. - syphillis test, folic acid and b12 levels - WNL -Communicated plan to patient's nurse -Will continue to follow along tomorrow -Please contact with any questions.
[2024-11-25] MEDS: QUEtiapine 50 MG TAB PO SCH (15:33)
--- NOTE | 2024-11-25 18:02 | P.PN ---
Subjective Progress Note Date: 11/25/24 Patient was seen for follow-up. Patient sitting in the recliner, appears comfortable. Patient's mentation much improved. He denies any headache, no dizziness. Patient still somewhat confused. Objective - Vital Signs Vital signs: Vital Signs Temp 97.6 F 11/25/24 08:00 Pulse 100 11/25/24 08:00 Resp 16 11/25/24 08:00 BP 142/77 11/25/24 08:00 Pulse Ox 97 11/25/24 08:00 FiO2 Intake & Output 11/24/24 11/25/24 11/25/24 18:59 06:59 18:59 Intake Total 640 Balance 640 Intake: Oral 640 Other: # Voids 8 2 # Bowel Movements 1 - Exam Patient is alert and awake. He is not as agitated as compared to yesterday. He was able to answer questions quite appropriately. Patient states the month is April and the year is . He could not tell what building he is in. On giving multiple prompts, patient said it is a charge. Speech is more fluent. Rest of the examination is nonfocal. - Labs CBC & Chem 7: 11/22/24 10:25 11/24/24 05:30 Assessment and Plan Assessment: * Acute delirium with altered mental status, with agitation. Probable acute psychosis. Exact cause is uncertain. No obvious metabolic causes identified. * X-tobacco use * Borderline B12/folate. Plan: * Suspect acute psychosis with agitation. * EEG was performed, which was abnormal due to background slowing, suggestive of mild encephalopathy. No focal, lateralized or epileptiform activity was seen. * MRI of the brain could not be performed, as patient's mentation is not intact, and MRI safety sheet could not be filled reliably. We will cancel MRI and perform repeat CT head. CT head showed no acute intracranial process or significant change from prior. Cerebral atrophy with nonspecific white matter changes, likely secondary to chronic small vessel ischemic disease. I personally reviewed CT head, agree with the findings. * B12 275, folate 7.7, TSH 4.5, hemoglobin A1c 5.7. RPR nonreactive. Patient's B12 and folate level are borderline. We will start replacement. * Psychiatry is also on board. Patient's mentation has improved since being on antipsychotics. Discussed with psychiatrist in detail. * No signs of infection at this time, with normal temperature and white cells. No indication for LP at this time. We will check NMDA antibodies. * I tried to call family members to obtain collateral history. Apparently the only number listed in the demographics is disconnected number. * Discussed with nursing staff and psychiatry.
[2024-11-25] MEDS: QUEtiapine 100 MG TAB PO SCH (22:16)
--- NOTE | 2024-11-26 06:16 | P.PN ---
Subjective Progress Note Date: 11/25/24 69-year-old male came in with altered mental status. His confusion appears to be more mostly drug-induced or medication induced as patient is awake alert hyperactive. Patient is conversing normally but speaking nonsense. CT of the head showed chronic microvascular ischemic changes. CT angio the head of neck is pending urine drug screen is pending. No information about his home medications at this time patient clinically does not appear to be septic does not have any fever he does not have a leukocytosis chest x-ray showed mild cardiomegaly with hypoventilatory changes patient's above-mentioned chest x-ray findings are secondary to his obesity rather than CHF. Patient does not appear to have any focal neurological deficits. Unable to obtain any review of systems because of his altered mental status 11/23/2024 Patient seen and evaluated in follow-up with sitter at the bedside as patient continues to have erratic behavior and refusing most treatment. Psychiatry consulted for further evaluation and altered mentation. Patient continues to be somewhat altered and confused was talking more. Will also consult neurology and appreciate input and recommendations. Case management/social work consulted as well. Patient is afebrile denies chest pain or shortness of breath. Patient is tolerating diet with no reported nausea or vomiting. Recommend follow-up labs and replace electrolytes as needed. Encourage daily hygiene as patient is odorous and unkempt. 11/24/2024 Patient is seen in follow-up today continues with the sitter at the bedside much more pleasant and having more conversation although continues to be confused and altered. Patient's vital signs are stable and patient is afebrile. Repeat labs this morning reveal a sodium of 141 with a potassium of 4.5, BUN is 9.2 with a creatinine of 0.9, hemoglobin A1c is 5.7, TSH within normal limits at 4.5, treponema screening is negative. Neurology attempted an EEG and has ordered an MRI although patient has refused and is refusing most medications and treatments. Psych to reevaluate the patient as well. IM medications given per psychiatry. 11/25/2024 Patient is seen in follow-up today currently sleeping as patient did receive Zyprexa this morning and underwent EEG. Report is currently pending and neurology along with psychiatry following. Patient is afebrile there is no reports of chest pain or shortness of breath. Patient is tolerating diet and has not had any nausea or vomiting. MRI is ordered and pending although unable to receive as patient is refusing and there is no other family members to prov magdiel consent and neurology ordering repeat CT brain. Initial CT was negative. Review of systems: Constitutional: No reports of fatigue, fever, or chills Cardiovascular: No reports of chest pain or palpitations Respiratory: No reports of shortness of breath or cough GI: No reports of nausea, vomiting, or diarrhea : Patient reports was having painful urination Neurovascular: No reports of weakness or numbness All medications have been reviewed All other systems are negative except those mentioned in the HPI PHYSICAL EXAMINATION: GENERAL: The patient is alert, x 1, hyperactive, unable to assess orientation, not in any acute distress. Well developed, well nourished. Unkempt, less odoro us, morbidly obese HEENT: Pupils are round and equally reacting to light. EOMI. No scleral icterus. No conjunctival pallor. Normocephalic, atraumatic. No pharyngeal erythema. No thyromegaly. CARDIOVASCULAR: S1 and S2 muffled PULMONARY: Chest is clear to auscultation, no wheezing or crackles. ABDOMEN: Soft, obese, nontender, nondistended, normoactive bowel sounds. No palpable organomegaly. MUSCULOSKELETAL: No joint swelling or deformity. EXTREMITIES: No cyanosis, clubbing, or pedal edema. NEUROLOGICAL: Gross neurological examination did not reveal any focal deficits. SKIN: No rashes. Assessment: -Altered mental status, possible metabolic/toxic encephalopathy appears to be drug-induced, medication induced awaiting urine drug screen. Patient is nontoxic, low possibility of sepsis or stroke. -Ruled out sepsis as patient remains afebrile and white count is not elevated -Rule out stroke, MRI ordered and pending with neurology following although patient is refusing and unable to obtain consent. Repeat CT is ordered -Obesity possibility of sleep apnea - GI prophylaxis -DVT prophylaxis: Lovenox - Full code Plan: Patient was admitted with altered mentation with erratic hyperactive behavior with concerns of possible medication or drug induced alteration although patient reports is not taking any medications and denies any drug use. Patient is status post EEG after receiving IM Zyprexa and will await official report. Unable to receive MRI at this time and neurology ordered repeat CT of the brain. Initial CT of the brain was negative. Patient reports, in third person, that he came here for painful urination although urinalysis was negative. When asking again patient denies any pain with urination Sitter at bedside and social work is following and awaiting updated notes from psychiatry as well as neurology, continue as needed IM medications to sedate for the procedure Will follow-up on repeat labs and continue to monitor closely. Patient is not allowed to leave AGAINST MEDICAL ADVICE given his mentation. Patient is not able to make any medical decisions at this time and may need a guardian. Patient denies having any family or friends nearby and reports to [place] in multiple places. Unsure if patient is homeless The impression and plan of care has been dictated by Riddhi Lee, Nurse Practitioner as directed. Dr. Lenore MD I have performed a history and examination and MDM of this patient, discussed the same with the dictator, and agree with the dictator's assessment and plan as written ,documented as a scribe. Based on total visit time, I have performed more than 50% of the visit. Objective - Vital Signs Vital signs: Vital Signs Temp 97.6 F 11/25/24 08:00 Pulse 100 11/25/24 08:00 Resp 16 11/25/24 08:00 BP 142/77 11/25/24 08:00 Pulse Ox 97 11/25/24 08:00 FiO2 Intake & Output 11/24/24 11/25/24 11/25/24 18:59 06:59 18:59 Intake Total 640 Balance 640 Intake: Oral 640 Other: # Voids 8 2 # Bowel Movements 1 - Labs CBC & Chem 7: 11/22/24 10:25 11/24/24 05:30 Labs: Abnormal Lab Results - Last 24 Hours (Table) 11/24/24 Range/Units 05:30 Anion Gap 12.60 H (4.00-12.00) mmol/L BUN/Creatinine Ratio 10.22 L (12.00-20.00) Ratio
--- NOTE | 2024-11-26 15:23 | P.PN ---
Subjective Progress Note Date: 11/27/24 Patient was seen for follow-up. Patient's daughter and her fianc were present at the bedside today. They provided very detailed history. 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 He to his , and they had 2 children. Patient's was his main caregiver. Patient's in 2018 from cancer, which made him more depressed. Patient's daughter has noticed that he has become more aggressive over time although he used to be very [id number] person but he is going downhill. Any changes in his environment is not good for him. He sometimes gets angry. Patient's daughter sold his house in summer 2023 and have him move near her in [facility]. This change made him worse. Patient's daughter watches his finances, pays his bills, follows medical appointments, pays his rent. In 2020 patient was diagnosed with prostate cancer but he declined any treatment. His PSA has been going up. Patient does have has history of hypertension, and his memory functions are getting worse. Patient's daughter has noticed that his communication skills are declining, uncertain if he has developed dementia. She could still talk to him although he has been worse since 2023. He often refuses his medications. Patient's daughter mentions that on 11/20/2024 he acted somewhat different, as he showed up at their house at night which he usually does not do. He did not bring his phone. He could not remember his cat's names and he was somewhat repetitive. Patient's daughter states that he does have some good days and some bad days but lately he has been forgetting name and the days. Patient's daughter further believes that this worsening is way out of his normal "bad days". This state of angriness is also more than usual. Objective - Vital Signs Vital signs: Vital Signs Temp 97.7 F 11/26/24 07:27 Pulse 75 11/26/24 08:55 Resp 18 11/26/24 07:27 BP 159/88 11/26/24 10:12 Pulse Ox 98 11/26/24 07:27 FiO2 Intake & Output 11/25/24 11/26/24 11/26/24 18:59 06:59 18:59 Other: # Voids 2 1 - Exam Patient is alert and awake. He is smiling, appears more pleasant today. De tailed testing was deferred. - Labs CBC & Chem 7: 11/27/24 05:54 11/27/24 05:54 Assessment and Plan Assessment: * Acute delirium with altered mental status, with agitation. Probable acute psychosis. Exact cause is uncertain. No obvious metabolic causes identified. * History of undiagnosed high functioning autism. * Dyslexia * X-tobacco use * Borderline B12/folate. * Prostate cancer, declining treatment of * Depression Plan: * Detailed history obtained from patient's daughter as mentioned above in detail. * Patient probably has acute psychosis with agitation. Recommend transfer to psych unit. * EEG was performed, which was abnormal due to background slowing, suggestive of mild encephalopathy. No focal, lateralized or epileptiform activity was seen. * MRI of the brain with and without contrast. Patient's daughter is now available to fill the MRI safety form. If the MRI does not reveal any abnormalities, then would recommend transfer to psychiatric unit. * B12 275, folate 7.7, TSH 4.5, hemoglobin A1c 5.7. RPR nonreactive. Patient's B12 and folate level are borderline. We will start replacement. * Psychiatry is also on board. Patient's mentation has improved since being on antipsychotics. Dr. Mahajan has mentioned that if patient does not improves, will take patient to psych unit. * No signs of infection at this time, with normal temperature and white cells. No indication for LP at this time. Patient will not cooperate with LP either. * Await NMDA antibodies. * Discussed with nursing staff and psychiatry. * Dr. Barber Thomas to resume neurology service in the morning.
[2024-11-26] MEDS: THIAMINE 100 MG TAB PO SCH (17:26)
--- NOTE | 2024-11-26 17:44 | P.CN ---
Psychiatric Consult - . Consult date: 11/26/24 Consult:: 11/26/24 17:38 MENTAL STATUS EXAM: General Appearance: Patient appears to be obese, longer hair, unkempt appearance stated age is alert, impulsive, urinating on himself. . Behavior: Patient is lying in bed and becomes agitated when asked simple questions that he can not answer. Speech: Patient's speech is concrete, repetitive, Mood/Affect:affect is labile and he is irritable and has no idea what his mood is. Suicidality/Homicidality: Patient denies having any suicidal or homicidal ideation intent or plan. Perceptions: Patient denies any visual hallucinations and denies any auditory hallucinations Though content/process: less Perseverating, fairly concrete, poor historian, more appropriate answers Memory and concentration: AOX1, he knows that he is in the hospital. He knows his correct name.He could not answer the question as to what day this is. He just recited the days of the week but could not pick one to guess or even remember what the question was or what his birthday was. Judgment and insight: Poor/impulsive, improving mildly IMPRESSIONS: This does not look like any psychiatric disorder that I have seen. 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 He does not seem depressed or consistently anything. Perhaps a bizarre conversion disorder, though unlikely Delirium, unknown etiology, improving mildly r/o aphasia PLAN: -At this time patient DOES NOT meet criteria for inpatient psychiatric admission HOWEVER will continue to follow along tomorrow to see if patient is repsonding to treatment or not and can consider inpatient psych hospiatlization if it is felt necessary. -Patient DOES NOT have decision making capacity at this time and is unable to reason through and communicate/appreciate the risks, benefits and alternatives to treatment. -Delirium precautions recommended with patient including - avoiding use of narcotics and RADIOCOMMUNICATIONS TECHNICIAN sedatives, limit anticholinergic medications when possible, frequent re-orientation, minimize use of restraints, open window shades during the day and close them at night -Would recommend the following medication changes/additions: increase Seroquel 50 mg daily + 100 mg nightly for mood stabilization/insomnia, Seroquel 3 times daily as needed for agitation, Zyprexa IM 3 times daily as needed for severe agitation/aggression. -Continue 1:1 sitter for safety -appreciate neurology recs and eeg interpretation shows mild encephalopathy, showing background slowing. Neurology checking NMDA - receptor antibodies, send out lab. - syphillis test, folic acid and b12 levels - WNL -Communicated plan to patient's nurse -Will continue to follow along tomorrow -Please contact with any questions.
[2024-11-27 10:00] LABS: Basophils # (A) 0.07 X 10*3/uL (0.00-0.10); Basophils % (A) 1.1 %; Eosinophils # (A) 0.28 X 10*3/uL (0.04-0.35); Eosinophils % (A) 4.4 %; HCT 47.8 % (39.6-50.0); HGB 15.4 g/dL (13.0-17.0); Immature Grans, Automated 0.90 %; Lymphocytes # (A) 2.12 X 10*3/uL (0.90-5.00); Lymphocytes % (A) 33.5 %; MCH 29.3 pg (27.0-32.0); MCHC 32.2 g/dL (32.0-37.0); MCV 90.9 FL (80.0-97.0); Monocytes # (A) 0.68 X 10*3/uL (0.20-1.00); Monocytes % (A) 10.7 %; NRBC Per 100 WBC 0 X 10*3/uL (0.00-0.01); Neutrophils # (A) 3.12 X 10*3/uL (1.80-7.70); Neutrophils % (A) 49.4 %; Platelet Count 280 X 10*3/uL (140-440); RBC 5.26 X 10*6/uL (4.40-5.60); RDW 13.8 % (11.5-14.5); WBC 6.33 X 10*3/uL (4.50-10.00)
[2024-11-27 10:16] LABS: ALT 53 U/L (10-49); AST 39 U/L (14-35); Albumin 3.8 g/dL (3.8-4.9); Albumin/Globulin Ratio 1.73 Ratio (1.60-3.17); Alkaline Phosphatase 55 U/L (41-126); Anion Gap 11.40 mmol/L (4.00-12.00); BUN/Creat Ratio 12.80 Ratio (12.00-20.00); Blood Urea Nitrogen 12.8 mg/dL (9.0-27.0); Calcium 8.9 mg/dL (8.7-10.3); Carbon Dioxide 22.6 mmol/L (21.6-31.8); Chloride 108 mmol/L (96-109); Globulin 2.2 g/dL (1.6-3.3); Glucose 98 mg/dL (70-110); Potassium 4.7 mmol/L (3.5-5.5); Sodium 142 mmol/L (135-145); Total Protein 6.0 g/dL (6.2-8.2)
--- NOTE | 2024-11-27 11:20 | PN ---
PROGRESS NOTE DATE OF SERVICE: 11/26/2024 SUBJECTIVE: This 69-year-old gentleman was admitted with change in mental status, being closely monitored at this time. No chest pain. No palpitation. OBJECTIVE: VITAL SIGNS: Pulse is 83, blood pressure is 151/70, respirations 17. CHEST: Clear to auscultation. ABDOMEN: Soft. LABORATORY DATA: Reviewed. ASSESSMENT: 1. Change in mental status, metabolic toxic encephalopathy, possible drug induced. 2. Possible acute psychosis versus delirium. 3. Possible dementia. 4. Rule out sepsis. 5. Rule out stroke. 6. Multiple complex medical issues. RECOMMENDATIONS: Recommend to continue current management and treatment. EEG has been done. Neurology following the patient closely. MRI could not be performed. CT of brain has been done showed no acute abnormality. We will continue recommend to continue current management. Guarded prognosis. Further recommendations to follow. MMODL / IJN: [id number] /
[2024-11-27] MEDS: MULTIVITAMINS, THERA 1 EACH TAB PO SCH (13:15)
--- NOTE | 2024-11-27 22:51 | PN ---
PROGRESS NOTE DATE OF SERVICE: 11/27/2024 SUBJECTIVE: This is a 69-year-old gentleman, who was admitted with change in mental status, possible features of psychosis. At this time, the patient has pressured speech. Psychiatry and Neurology are following the patient closely. CT scan of the brain repeated did not show any acute abnormality. PAST MEDICAL HISTORY: Reviewed. REVIEW OF SYSTEMS: 14-point review of systems is negative except as mentioned earlier. CURRENT MEDICATIONS: Reviewed. PHYSICAL EXAMINATION: VITAL SIGNS: Pulse 91, blood pressure 130/70, respirations 18. CHEST: Clear to auscultation. CARDIOVASCULAR: S1, S2. ABDOMEN: Soft. NERVOUS SYSTEM: No focal deficits. LABORATORY DATA: Reviewed. ASSESSMENT: 1. Change in mental status and possible acute metabolic toxic encephalopathy, possibly drug-induced. 2. Possible psychosis versus delirium. 3. Possible dementia. 4. Sepsis, ruled out. 5. Stroke, ruled out. 6. Multiple complex medical issues. RECOMMENDATIONS: Recommend to continue current medications, and continue symptomatic treatment. Otherwise, the patient is on Seroquel. I would recommend Psychiatry to closely follow the patient and to adjust the medications. Otherwise, follow closely with Neurology. MRI has been ordered. Guarded prognosis because of multiple complex medical issues. Further recommendations to follow. I recommend sedimentation rate and CRP also. MMODL / IJN: [id number] /
--- NOTE | 2024-11-28 03:11 | P.PN ---
Subjective Progress Note Date: 11/26/24 Patient was seen for follow-up. patient continues to be acting agitated. He is pacing in the room. He denies any headache or dizziness. Patient becomes irritable easily. Objective - Vital Signs Vital signs: Vital Signs Temp 98.3 F 11/27/24 20:00 Pulse 77 11/27/24 20:00 Resp 18 11/27/24 20:00 BP 146/84 11/27/24 20:00 Pulse Ox 96 11/27/24 20:00 FiO2 Intake & Output 11/27/24 11/27/24 11/28/24 06:59 18:59 06:59 Intake Total 236 Balance 236 Intake: Oral 236 Other: # Voids 3 4 - Exam Patient is alert and awake. patient becomes irritable easily. He continues to be aphasic, with fragmentry speech. He often states "do you understand" with irritability. - Labs CBC & Chem 7: 11/27/24 05:54 11/27/24 05:54 Labs: Abnormal Lab Results - Last 24 Hours (Table) 11/27/24 11/27/24 Range/Units 05:54 05:54 Immature Gran # 0.06 H (0.00-0.04) X 10*3/uL AST 39 H (14-35) U/L ALT 53 H (10-49) U/L Total Protein 6.0 L (6.2-8.2) g/dL Assessment and Plan Assessment: * Acute delirium with altered mental status, with agitation. Probable acute psychosis. Exact cause is uncertain. No obvious metabolic causes identified. * History of undiagnosed high functioning autism. * Dyslexia * X-tobacco use * Borderline B12/folate. * Prostate cancer, declining treatment * Depression Plan: * Suspect acute psychosis with agitation. * EEG was performed, which was abnormal due to background slowing, suggestive of mild encephalopathy. No focal, lateralized or epileptiform activity was seen. * MRI of the brain could not be performed, as patient's mentation is not intact, and MRI safety sheet could not be filled reliably. We will cancel MRI and perform repeat CT head. CT head showed no acute intracranial process or significant change from prior. Cerebral atrophy with nonspecific white matter changes, likely secondary to chronic small vessel ischemic disease. I personally reviewed CT head, agree with the findings. * B12 275, folate 7.7, TSH 4.5, hemoglobin A1c 5.7. RPR nonreactive. Patient's B12 and folate level are borderline. We will start replacement. * Psychiatry is also on board. Patient's mentation has improved since being on antipsychotics. Discussed with psychiatrist in detail. * No signs of infection at this time, with normal temperature and white cells. No indication for LP at this time. We will check NMDA antibodies. * I tried to call family members to obtain collateral history. Apparently the only number listed in the demographics is disconnected number. * Discussed with nursing staff and psychiatry.
[2024-11-28] MEDS: LORazepam 1 MG/0.5 ML VIAL IV ONE (15:57)
--- NOTE | 2024-11-28 16:19 | MR ---
INDICATION: Patient age:Male; 69 years old; Reason for study: AMS; PHH. COMPARISON: CT brain 11/25/2024, 11/22/2024, CT head and neck 11/22/2024 TECHNIQUE: Multi planar, multi sequence imaging was performed through the brain. The patient was then given 11 cc of Gadobutrol intravenously and multi planar, T1 fat-saturation images were obtained. FINDINGS: Motion degraded examination. Mild cerebral atrophy with prominence of the ventricular system and basal cisterns. The cleveland-white ju nctions are unremarkable. Diffusion-weighted imaging shows no evidence of restricted diffusion to sug gest acute/subacute infarct. Intracranial arterial flow voids are maintained. Midline structures show no abnormality. Confluent areas of high T2/FLAIR signal intensity are seen within the periventricula r white matter. Couple additional subcortical white matter foci. The susceptibility weighted images d o not reveal any evidence for micro-hemorrhage. After administration of gadolinium, no abnormal enhan cement is seen. The bone marrow signal is within normal limits. The paranasal sinuses and globes are unremarkable. IMPRESSION: 1. No evidence of intracranial mass, acute/subacute infarct, or abnormal enhancement. 2. Nonspecific white matter changes, likely related to small vessel ischemic disease. Demyelinating d isease, chronic migraines, vasculitis, Lyme disease are other considerations. [facility], , 11/28/2024 4:16 PM
[2024-11-29] MEDS: ACETAMINOPHEN TAB 325 MG TAB PO PRN (03:15)
--- NOTE | 2024-11-29 04:52 | P.PN ---
Subjective Progress Note Date: 11/28/24 69-year-old male came in with altered mental status. His confusion appears to be more mostly drug-induced or medication induced as patient is awake alert hyperactive. Patient is conversing normally but speaking nonsense. CT of the head showed chronic microvascular ischemic changes. CT angio the head of neck is pending urine drug screen is pending. No information about his home medications at this time patient clinically does not appear to be septic does not have any fever he does not have a leukocytosis chest x-ray showed mild cardiomegaly with hypoventilatory changes patient's above-mentioned chest x-ray findings are secondary to his obesity rather than CHF. Patient does not appear to have any focal neurological deficits. Unable to obtain any review of systems because of his altered mental status 11/23/2024 Patient seen and evaluated in follow-up with sitter at the bedside as patient continues to have erratic behavior and refusing most treatment. Psychiatry consulted for further evaluation and altered mentation. Patient continues to be somewhat altered and confused was talking more. Will also consult neurology and appreciate input and recommendations. Case management/social work consulted as well. Patient is afebrile denies chest pain or shortness of breath. Patient is tolerating diet with no reported nausea or vomiting. Recommend follow-up labs and replace electrolytes as needed. Encourage daily hygiene as patient is odorous and unkempt. 11/24/2024 Patient is seen in follow-up today continues with the sitter at the bedside much more pleasant and having more conversation although continues to be confused and altered. Patient's vital signs are stable and patient is afebrile. Repeat labs this morning reveal a sodium of 141 with a potassium of 4.5, BUN is 9.2 with a creatinine of 0.9, hemoglobin A1c is 5.7, TSH within normal limits at 4.5, treponema screening is negative. Neurology attempted an EEG and has ordered an MRI although patient has refused and is refusing most medications and treatments. Psych to reevaluate the patient as well. IM medications given per psychiatry. 11/25/2024 Patient is seen in follow-up today currently sleeping as patient did receive Zyprexa this morning and underwent EEG. Report is currently pending and neurology along with psychiatry following. Patient is afebrile there is no reports of chest pain or shortness of breath. Patient is tolerating diet and has not had any nausea or vomiting. MRI is ordered and pending although unable to receive as patient is refusing and there is no other family members to prov magdile consent and neurology ordering repeat CT brain. Initial CT was negative. 11/28/2024 Patient is seen in follow-up today mentation is improving although continues with confusion. Apparently there is a daughter who is working on filing a missing reports claim that she has not talked to him in over a week. Patient is scheduled for MRI today and appears somewhat more agreeable. Continue current medication regimen and psychiatry following as well. Psychiatry reporting he does not meet criteria for psychiatric unit and also does not have capacity for decision-making. Patient is afebrile denies chest pain or shortness of breath. Patient has been tolerating diet with no reported nausea or vomiting. Patient has been up and walking to the bathroom independently. Review of systems: Constitutional: No reports of fatigue, fever, or chills Cardiovascular: No reports of chest pain or palpitations Respiratory: No reports of shortness of breath or cough GI: No reports of nausea, vomiting, or diarrhea : Denies pain or burning or frequency with urination Neurovascular: No reports of weakness or numbness All medications have been reviewed PHYSICAL EXAMINATION: GENERAL: The patient is alert, x 1, hyperactive, unable to assess orientation, not in any acute distress. Well developed, well nourished. Unkempt, less odorous, morbidly obese HEENT: Pupils are round and equally reacting to light. EOMI. No scleral icterus. No conjunctival pallor. Normocephalic, atraumatic. No pharyngeal erythema. No thyromegaly. CARDIOVASCULAR: S1 and S2 muffled PULMONARY: Chest is clear to auscultation, no wheezing or crackles. ABDOMEN: Soft, obese, nontender, nondistended, normoactive bowel sounds. No palpable organomegaly. MUSCULOSKELETAL: No joint swelling or deformity. EXTREMITIES: No cyanosis, clubbing, or pedal edema. NEUROLOGICAL: Gross neurological examination did not reveal any focal deficits. SKIN: No rashes. Assessment: -Altered mental status, possible metabolic/toxic encephalopathy appears to be drug-induced, medication induced UDS was negative. Patient is nontoxic, low possibility of sepsis or stroke. -Ruled out sepsis as patient remains afebrile and white count is not elevated -Ruled out stroke, MRI negative today 11/28/2024 -Obesity possibility of sleep apnea - GI prophylaxis -DVT prophylaxis: Lovenox - Full code Plan: Patient was admitted with altered mentation with erratic hyperactive behavior with concerns of possible medication or drug induced alteration although patient reports is not taking any medications and denies any drug use. Patient is status post EEG after receiving IM Zyprexa and there was some slowing although no epileptiform discharges or abnormalities noted. Patient is status post MRI of the brain which is negative for acute process and CVA ruled out Apparently there is a daughter that was looking for him as he was missing and awaiting MRI results. Psychiatry reevaluated and reports she does not meet inpatient criteria and they do not treat delirium recommending outpatient follow-up Will discuss further with neurology and social work regarding discharge planning. Awaiting a safe discharge plan and to discuss further with daughter. Patient is not allowed to leave AGAINST MEDICAL ADVICE given his mentation. Patient is not able to make any medical decisions at this time and may need a guardian. Overall prognosis is guarded The impression and plan of care has been dictated by Riddhi Lee, Nurse Practitioner as directed. Dr. Bob MD I have performed a history and examination and MDM of this patient, discussed the same with the dictator, and agree with the dictator's assessment and plan as written ,documented as a scribe. Based on total visit time, I have performed more than 50% of the visit. Objective - Vital Signs Vital signs: Vital Signs Temp 97.3 F L 11/28/24 07:04 Pulse 72 11/28/24 07:04 Resp 17 11/28/24 07:04 BP 141/78 11/28/24 07:04 Pulse Ox 98 11/28/24 07:04 FiO2 Intake & Output 11/27/24 11/28/24 11/28/24 18:59 06:59 18:59 Intake Total 236 118 Balance 236 118 Intake: Oral 236 118 Other: Voiding Method Toilet # Voids 4 2 - Labs CBC & Chem 7: 11/27/24 05:54 11/27/24 05:54
[2024-11-29 07:59] VITALS: BMI 31.4
--- NOTE | 2024-11-29 12:13 | P.PN ---
Progress Note - Text Pain management has been consulted for lumbar puncture because of mental status change. On reviewing the chart, patient received Lovenox at 8:47 AM. LP cannot be done before 8:47 PM. Asked the nurse to call the ordering physician to let us know if this LP can be done tomorrow by anesthesia or it is an emergency that needs to be done tonight by on-call anesthesiologist. No pain clinic tomorrow. Waiting for reply from ordering physician.
--- NOTE | 2024-11-29 13:13 | P.CN ---
Psychiatric Consult - . Consult date: 11/29/24 Consult:: 11/29/24 13:00 Consult follow-up IDENTIFYING DATA: This patient is a 69-year-old male, , with a daughter REASON FOR REFERRAL: Psychiatry was consulted for altered mental status with labile behavior HISTORY OF PRESENT ILLNESS: The patient presented to the hospital on 11/22 via EMS for altered mental status. Patient apparently was driving erratically, was a poor historian when he came into the hospital was inappropriate unable to answer questions. Upon leaving the room the patient was sitting on the bed awake and alert. The patient was very limited in answering my questions. He notes that he is not depressed or anxious. He notes that he is not suicidal or homicidal. He notes that he is not psychotic or hearing voices. When asking him how he got to the hospital he notes "I do not know". When asking if he has ever been diagnosed with mental health he denies this. He denies ever being on any mental health medications. He presented telling me how to turn on the light and how to turn it off correctly. Most the time when he responded to different questions he did not have somewhat of a word salad. He was unable to identify time or place but was able to identify himself. Reviewing notes it is indicated that the patient has a history of high functioning autism. His daughter also noted that note notes that he has had a steady decline in functioning after his . MENTAL STATUS EXAM: General Appearance: Patient appears to be stated age is alert. Patient appears to have slightly disheveled hygiene and grooming wearing hospital gown with good eye contact. Behavior: The patient was sitting on the side of the bed and appeared to be somewhat hyperactive and limited cooperative Speech: Patient's speech is fluent and nonpressured. Mood/Affect: Patient reports their mood is "agitated", affect is congruent Suicidality/Homicidality: Patient denies having any suicidal or homicidal ideation intent or plan. Perceptions: Patient denies any visual hallucinations and denies any auditory hallucinations Though content/process: There is no evidence of any delusional thought content and thought process is linear and goal-directed. Memory and concentration: The patient was not AO x 3 but AO x 1 Judgment and insight: Poor/Poor IMPRESSIONS: Delirium, unknown etiology versus dementia PLAN: -At this time patient DOES NOT meet criteria for inpatient psychiatric admission. -Patient DOES NOT have decision making capacity at this time and is unable to reason through and communicate/appreciate the risks, benefits and alternatives to treatment. -Delirium precautions recommended with patient including - avoiding use of narcotics and EDGER RUNNER sedatives, limit anticholinergic medications when possible, frequent re-orientation, minimize use of restraints, open window shades during the day and close them at night -Would recommend the following medication changes/additions: Seroquel 50 mg daily + 100 mg nightly for mood stabilization/insomnia Seroquel 3 times daily as needed for agitation Zyprexa IM 3 times daily as needed for severe agitation/aggression. -Continue 1:1 sitter for safety -Communicated plan to patient's nurse -Psychiatry will sign off at this time -Please contact with any questions. 11/29/24 13:02
--- NOTE | 2024-11-29 13:17 | P.PN ---
Subjective Progress Note Date: 11/29/24 Principal diagnosis: Patient seen and examined at bedside today. Talked to patient's daughter who provided complete history. Patient was born with undocumented high functioning autism and he cannot read and write. 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 Patient's was his main caregiver who in 2018 from cancer which made him more depressed. Patient now lives in [facility], 10 minutes away from his daughter. Patient retired a year ago and since then her daughter has notic ed that the patient's health is declining. Patient was also diagnosed with prostate cancer in 2020 along with hypertension but he does not take his medications. A week ago the patient started acting somewhat different, he did not go to the bank as regularly as he would before which made his daughter suspicious. His daughter went to check up on him and found out that the patient's car was not there and the patient had left home. A missing person report was then filed by her daughter and then she found out that the patient had been admitted here at our facility. Brain MRI obtained yesterday shows no evidence of intracranial mass, acute/subacute infarct or abnormal enhancement, nonspecific white matter changes likely related to small vessel ischemic disease Objective - Vital Signs Vital signs: Vital Signs Temp 97.5 F L 11/29/24 02:56 Pulse 80 11/29/24 07:28 Resp 17 11/29/24 07:28 BP 128/81 11/29/24 07:28 Pulse Ox 100 11/29/24 07:28 FiO2 Intake & Output 11/28/24 11/29/24 11/29/24 18:59 06:59 18:59 Intake Total 358 Balance 358 Weight 111.13 kg Intake: Oral 358 Other: Voiding Method Toilet # Voids 2 1 # Bowel Movements 0 - Exam Patient is alert and awake. He is not as agitated. He was unable to answer questions quite appropriately and kept answering "for 4 days " to all questions. Patient able to name simple objects like watch, pen used to write, pair of glasses. On muscle strength testing, there is no pronator drift and the strength is normal in arms and legs distally and proximally. Deep tendon reflexes are symmetric trace at the biceps, 0 brachioradialis, 1 at the knees and plantars indeterminate Sensory to touch is equal Cerebellar function showed no ataxia for [id number] testing. No dysdiadochokinesia. - Labs CBC & Chem 7: 11/27/24 05:54 11/27/24 05:54 Assessment and Plan Assessment: Acute delirium with altered mental status, with agitation. Probable acute psychosis. Exact cause is uncertain. No obvious metabolic causes identified.---psychosis is improved but continues to be altered History of undiagnosed high functioning autism. Dyslexia X-tobacco use Borderline B12/folate. Prostate cancer, declining treatment of Depression Plan: Detailed history obtained from patient's daughter as mentioned above in detail. Pain management consulted for lumbar puncture, consent obtained from daughter Obtain CSF studies and HIV, Herpes and JHOANA testing EEG was performed, which was abnormal due to background slowing, suggestive of mild encephalopathy. No focal, lateralized or epileptiform activity was seen. Brain MRI obtained yesterday shows no evidence of intracranial mass, acute/subacute infarct or abnormal enhancement, nonspecific white matter changes likely related to small vessel ischemic disease B12 275, folate 7.7, TSH 4.5, hemoglobin A1c 5.7. RPR nonreactive. Patient's B12 and folate level are borderline. Continue folic acid 1 mg p.o. daily, cyanocobalamin 1000 mcg p.o. daily Patient probably has acute psychosis with agitation. Psychiatry is also on board. Patient's mentation has improved since being on antipsychotics. Per Dr. García's notes, Dr. Garner has mentioned that if patient does not improves, will take patient to psych unit. But current psychiatrist states patient is not inpatient candidate and they signed off. No signs of infection at this time, with normal temperature and white cells. Await NMDA antibodies. Discussed with nursing staff Dictation was produced using [employer] dictation software. please excuse any grammatical, word or spelling errors. Gemma Gibbs MD PGY-2 IM I personally examined the patient with the resident and obtained history. Will attempt to pursue with CSF study since the patient is more cooperative to rule out any LICENSED PROFESSIONAL COUNSELOR infection. MRI Brain is negative for acute process. I agree the resident's assessment and plan. Barber Thomas M.D. Time with Patient: Less than 30
[2024-11-29 19:20] LABS: HIV 2 AB Non-Reactive (Non-Reactive); HIV AB P24 Non-Reactive (Non-Reactive); HIV P24 AG Non-Reactive (Non-Reactive)
[2024-11-30 09:30] LABS: ALT 69 U/L (4-49); AST 47 U/L (17-59); African American GFR (CKD) >90 (>60 ml/min/1.73 sqM); Albumin 4.1 g/dL (3.5-5.0); Albumin/Globulin Ratio 1.5; Alkaline Phosphatase 65 U/L (38-126); Anion Gap 14 mmol/L; Blood Urea Nitrogen 11 mg/dL (9-20); Calcium 9.9 mg/dL (8.4-10.2); Carbon Dioxide 21 mmol/L (22-30); Chloride 105 mmol/L (98-107); Globulin 2.7 g/dL; Glucose 103 mg/dL (74-99); Magnesium 2.3 mg/dL (1.6-2.3); Non-African American GFR(CKD) >90 (>60 ml/min/1.73 sqM); Potassium 4.4 mmol/L (3.5-5.1); Sodium 140 mmol/L (137-145); Total Protein 6.8 g/dL (6.3-8.2)
--- NOTE | 2024-11-30 09:58 | P.PN ---
Subjective Progress Note Date: 11/29/24 69-year-old male came in with altered mental status. His confusion appears to be more mostly drug-induced or medication induced as patient is awake alert hyperactive. Patient is conversing normally but speaking nonsense. CT of the head showed chronic microvascular ischemic changes. CT angio the head of neck is pending urine drug screen is pending. No information about his home medications at this time patient clinically does not appear to be septic does not have any fever he does not have a leukocytosis chest x-ray showed mild cardiomegaly with hypoventilatory changes patient's above-mentioned chest x-ray findings are secondary to his obesity rather than CHF. Patient does not appear to have any focal neurological deficits. Unable to obtain any review of systems because of his altered mental status 11/23/2024 Patient seen and evaluated in follow-up with sitter at the bedside as patient continues to have erratic behavior and refusing most treatment. Psychiatry consulted for further evaluation and altered mentation. Patient continues to be somewhat altered and confused was talking more. Will also consult neurology and appreciate input and recommendations. Case management/social work consulted as well. Patient is afebrile denies chest pain or shortness of breath. Patient is tolerating diet with no reported nausea or vomiting. Recommend follow-up labs and replace electrolytes as needed. Encourage daily hygiene as patient is odorous and unkempt. 11/24/2024 Patient is seen in follow-up today continues with the sitter at the bedside much more pleasant and having more conversation although continues to be confused and altered. Patient's vital signs are stable and patient is afebrile. Repeat labs this morning reveal a sodium of 141 with a potassium of 4.5, BUN is 9.2 with a creatinine of 0.9, hemoglobin A1c is 5.7, TSH within normal limits at 4.5, treponema screening is negative. Neurology attempted an EEG and has ordered an MRI although patient has refused and is refusing most medications and treatments. Psych to reevaluate the patient as well. IM medications given per psychiatry. 11/25/2024 Patient is seen in follow-up today currently sleeping as patient did receive Zyprexa this morning and underwent EEG. Report is currently pending and neurology along with psychiatry following. Patient is afebrile there is no reports of chest pain or shortness of breath. Patient is tolerating diet and has not had any nausea or vomiting. MRI is ordered and pending although unable to receive as patient is refusing and there is no other family members to prov magdiel consent and neurology ordering repeat CT brain. Initial CT was negative. 11/28/2024 Patient is seen in follow-up today mentation is improving although continues with confusion. Apparently there is a daughter who is working on filing a missing reports claim that she has not talked to him in over a week. Patient is scheduled for MRI today and appears somewhat more agreeable. Continue current medication regimen and psychiatry following as well. Psychiatry reporting he does not meet criteria for psychiatric unit and also does not have capacity for decision-making. Patient is afebrile denies chest pain or shortness of breath. Patient has been tolerating diet with no reported nausea or vomiting. Patient has been up and walking to the bathroom independently. 11/29/2024 Patient is seen and evaluated in follow-up today is pleasant and appropriate and cooperative with care. MRI was negative and neurology following recommending possible LP although Lovenox was given. Will consult pain management/anesthesia for possible LP and patient is agreeable and daughter aware. Social work audi aguila along with psychiatry and psychiatry has signed off recommending that patient does not meet inpatient criteria. Will discuss further with social work once LP is performed to discuss discharge planning and treatment plan moving forward. Review of systems: Constitutional: No reports of fatigue, fever, or chills Cardiovascular: No reports of chest pain or palpitations Respiratory: No reports of shortness of breath or cough GI: No reports of nausea, vomiting, or diarrhea : Denies pain or burning or frequency with urination Neurovascular: No reports of weakness or numbness All medications have been reviewed PHYSICAL EXAMINATION: GENERAL: The patient is alert, x 1, hyperactive, unable to assess orientation, not in any acute distress. Well developed, well nourished. Unkempt, less odorous, morbidly obese HEENT: Pupils are round and equally reacting to light. EOMI. No scleral icterus. No conjunctival pallor. Normocephalic, atraumatic. No pharyngeal erythema. No thyromegaly. CARDIOVASCULAR: S1 and S2 muffled PULMONARY: Chest is clear to auscultation, no wheezing or crackles. ABDOMEN: Soft, obese, nontender, nondistended, normoactive bowel sounds. No palpable organomegaly. MUSCULOSKELETAL: No joint swelling or deformity. EXTREMITIES: No cyanosis, clubbing, or pedal edema. NEUROLOGICAL: Gross neurological examination did not reveal any focal deficits. SKIN: No rashes. Assessment: -Altered mental status, possible metabolic/toxic encephalopathy appears to be drug-induced, medication induced UDS was negative. Patient is nontoxic, low possibility of sepsis or stroke. -Ruled out sepsis as patient remains afebrile and white count is not elevated -Ruled out stroke, MRI negative today 11/28/2024 -Obesity possibility of sleep apnea - GI prophylaxis -DVT prophylaxis: Lovenox - Full code Plan: Patient was admitted with altered mentation with erratic hyperactive behavior with concerns of possible medication or drug induced alteration although patient reports is not taking any medications and denies any drug use. Patient is status post EEG after receiving IM Zyprexa and there was some slowing although no epileptiform discharges or abnormalities noted. Patient is status post MRI of the brain which is negative for acute process and CVA ruled out Apparently there is a daughter who is the patient's power of quality assurance intern, that was looking for him as he was missing. MRI is negative. Psychiatry reevaluated and reports he does not meet inpatient criteria and they do not treat delirium recommending outpatient follow-up and signed off the case again Discussed further with neurology and will be scheduled for LP. Consulted pain management/anesthesia to perform the LP. Lovenox was given this morning although anesthesia reports can be done later this evening. Will await report social work following regarding discharge planning. Awaiting a safe discharge plan and to discuss further with daughter. Daughter is power of quality assurance intern and needs to be notified in the event of needing possible placement or long-term placement. Patient is not allowed to leave AGAINST MEDICAL ADVICE given his mentation. Patient is not able to make any medical decisions at this time and may need a guardian. Overall prognosis is guarded The impression and plan of care has been dictated by Riddhi Lee, Nurse Practitioner as directed. Dr. Bob MD I have performed a history and examination and MDM of this patient, discussed the same with the dictator, and agree with the dictator's assessment and plan as written ,documented as a scribe. Based on total visit time, I have performed more than 50% of the visit. Objective - Vital Signs Vital signs: Vital Signs Temp 97.9 F 11/30/24 07:14 Pulse 75 11/30/24 07:14 Resp 16 11/30/24 07:14 BP 125/85 11/30/24 07:14 Pulse Ox 98 11/30/24 07:14 FiO2 Intake & Output 11/29/24 11/30/24 11/30/24 18:59 06:59 18:59 Weight 111.13 kg Other: Voiding Method Toilet Toilet # Voids 4 2 - Labs CBC & Chem 7: 11/27/24 05:54 11/30/24 08:01 Labs: Abnormal Lab Results - Last 24 Hours (Table) 11/29/24 11/30/24 Range/Units 10:53 08:01 Carbon Dioxide 21 L (22-30) mmol/L Glucose 103 H (74-99) mg/dL ALT 69 H (4-49) U/L JHOANA Screen POSITIVE A (Negative)
[2024-11-30 10:33] LABS: Basophils # (A) 0.09 X 10*3/uL (0.00-0.10); Basophils % (A) 1.3 %; Eosinophils # (A) 0.30 X 10*3/uL (0.04-0.35); Eosinophils % (A) 4.4 %; HCT 48.4 % (39.6-50.0); HGB 15.1 g/dL (13.0-17.0); Immature Grans, Automated 0.90 %; Lymphocytes # (A) 1.82 X 10*3/uL (0.90-5.00); Lymphocytes % (A) 26.5 %; MCH 29.6 pg (27.0-32.0); MCHC 31.2 g/dL (32.0-37.0); MCV 94.9 FL (80.0-97.0); Monocytes # (A) 0.73 X 10*3/uL (0.20-1.00); Monocytes % (A) 10.6 %; NRBC Per 100 WBC 0 X 10*3/uL (0.00-0.01); Neutrophils # (A) 3.87 X 10*3/uL (1.80-7.70); Neutrophils % (A) 56.3 %; Platelet Count 285 X 10*3/uL (140-440); RBC 5.10 X 10*6/uL (4.40-5.60); RDW 14.4 % (11.5-14.5); WBC 6.87 X 10*3/uL (4.50-10.00)
[2024-11-30] MEDS: QUEtiapine 50 MG TAB PO PRN (12:24)
--- NOTE | 2024-11-30 13:54 | P.PCN ---
Description of Procedure: Preprocedure diagnosis. Mental status change. Postprocedure diagnosis. As above. Procedure done. Lumbar puncture and collection of cerebrospinal fluid. Anesthesia. Local infiltration with anesthetics. Continuous pulse ox, EKG, blood pressure and verbal communication was maintained with the patient. Blood loss. None. Indication. Discussed the procedure, alternatives, complications which may include infection, nerve damage, paralysis, aggravation of the symptoms especially bleeding in the spine and post dural puncture headache with the patient. The patient understands and all questions were answered. Procedure note. After getting concentration in the procedure room in sitting position. Back prepped with chlorhexidine and draped in sterile fashion. After injecting 3 mL of 1% lidocaine subcutaneously, a 22-gauge spinal needle was introduced at L4-5 interspace. Positive CSF, negative blood, negative paresth esia. CSF color was clear. CSF pressure was not measured. CSF was collected in 4 supplied sterile containers in sequence. Spinal needle was taken out and bandage was applied. Disposition. Patient tolerated the procedure well. No complication. Advised patient to lay flat one-hour postprocedure. The rest of the day today try to lay flat as much as possible. Next 3 days drink lots of fluid especially caffeinated beverages, and avoid constipation cough and doing strenuous physical work. Discharged home in stable condition.
--- NOTE | 2024-11-30 14:19 | P.PN ---
Subjective Progress Note Date: 11/30/24 Principal diagnosis: Patient seen and examined at bedside today. Patient is more agitated today. Vitals signs are stable. JHOANA screen is positive. HIV testing negative. Objective - Vital Signs Vital signs: Vital Signs Temp 97.9 F 11/30/24 07:14 Pulse 75 11/30/24 07:14 Resp 16 11/30/24 07:14 BP 125/85 11/30/24 07:14 Pulse Ox 98 11/30/24 07:14 FiO2 Intake & Output 11/29/24 11/30/24 11/30/24 18:59 06:59 18:59 Weight 111.13 kg Other: Voiding Method Toilet Toilet # Voids 4 2 - Exam Patient is alert and awake. He was unable to answer questions quite appropriately Patient able to name simple objects like watch, pen used to write, pair of glasses. On muscle strength testing, there is no pronator drift and the strength is normal in arms and legs distally and proximally. Deep tendon reflexes are symmetric trace at the biceps, 0 brachioradialis, 1 at the knees and plantars indeterminate Sensory to touch is equal Cerebellar function showed no ataxia for [id number] testing. No dysdiadochokinesia. - Labs CBC & Chem 7: 11/30/24 08:01 11/30/24 08:01 Labs: Abnormal Lab Results - Last 24 Hours (Table) 11/29/24 Range/Units 10:53 JHOANA Screen POSITIVE A (Negative) Assessment and Plan Assessment: Acute delirium with with agitation. Unknown etiology. History of undiagnosed high functioning autism. Dyslexia X-tobacco use Borderline B12/folate. Prostate cancer, declining treatment Depression Plan: EEG was performed, which was abnormal due to background slowing, suggestive of mild encephalopathy. No focal, lateralized or epileptiform activity was seen. Brain MRI obtained yesterday shows no evidence of intracranial mass, acute/subacute infarct or abnormal enhancement, nonspecific white matter changes likely related to small vessel ischemic disease JHOANA screen is positive. HIV testing negative. Anaesthesia consulted for lumbar puncture, consent obtained from patient's daughter Obtain CSF studies Await NMDA antibodies and Herpes testing. B12 275, folate 7.7, TSH 4.5, hemoglobin A1c 5.7. RPR nonreactive. Patient's B12 and folate level are borderline. Continue folic acid 1 mg p.o. daily, cyanocobalamin 1000 mcg p.o. daily Psychiatry signed off Dictation was produced using [employer] dictation software. please excuse any grammatical, word or spelling errors. Gemma Gibbs MD PGY-2 IM I personally examined the patient and patient was more agitated today and using high pitched tone. Lumbar puncture is performed today and pending results. JHOANA is positive and pending titers. Pending NMDA abs and herpes results. Recommend psychiatry re-evaluation. I agree with the resident's assessment and plan. Time with Patient: Less than 30
[2024-11-30 14:23] LABS: Glucose,CSF 57 mg/dL (40-70)
[2024-11-30 15:45] LABS: CSF Tube Volume 2.0; Nucleated Cells, CSF 1 u/L (0-5); Red Blood Cell,CSF 5 u/L (0-10)
[2024-11-30 19:47] LABS: Procalcitonin <0.20 ng/mL (0.02-0.50)
--- NOTE | 2024-11-30 21:31 | CT ---
EXAMINATION TYPE: CT chest angio for PE CT DLP: 902.2 mGycm, Automated exposure control for dose reduction was used. DATE OF EXAM: 11/30/2024 9:09 PM COMPARISON: Chest radiograph from 11/22/2024. CLINICAL INDICATION:Male, 69 years old with history of elevated d dimer; Elevated D-dimer. TECHNIQUE/CONTRAST: CTA scan of the thorax is performed with IV Contrast, patient injected with 100 mL of Isovue 370, MIP images are created and reviewed these are created on a separate workstation.. FINDINGS: Motion artifact on exam limits evaluation. Pulmonary Artery: There is no evidence for a central or segmental filling defects within the pulmonar y vasculature to suggest acute pulmonary embolism. Limited evaluation of the subsegmental branches se condary to motion artifact and bolus attenuation. The pulmonary artery is of normal size. Lungs/Pleura: No evidence of focal consolidation, pleural effusion or pneumothorax. Airway: Large airways are patent. Heart: Heart is within normal limits for size. Vasculature: No evidence of aortic aneurysm. Mediastinum: No gross evidence of adenopathy. Musculoskeletal: No acute osseous abnormalities Soft Tissues/lymph nodes: Unremarkable. Lower neck: No significant findings. Upper Abdomen: There are scattered hypodense foci in the partially visualized liver some of which are subcentimeter in size to small to characterize. The most conspicuous of these is seen in the right h epatic lobe measuring at least 2.2 cm demonstrating simple fluid attenuation. There are a few scatter ed mid abdominal and precaval lymph nodes seen measuring up to 1.1 cm in short axis likely reactive i n nature. IMPRESSION: No evidence of central or segmental pulmonary embolism. Limited evaluation of the subsegmental branch es. If clinical concern for ovarian embolism persists consider a lower extremity DVT study. [facility], , 11/30/2024 9:29 PM
--- NOTE | 2024-12-01 02:22 | P.PN ---
Subjective Progress Note Date: 11/30/24 69-year-old male came in with altered mental status. His confusion appears to be more mostly drug-induced or medication induced as patient is awake alert hyperactive. Patient is conversing normally but speaking nonsense. CT of the head showed chronic microvascular ischemic changes. CT angio the head of neck is pending urine drug screen is pending. No information about his home medications at this time patient clinically does not appear to be septic does not have any fever he does not have a leukocytosis chest x-ray showed mild cardiomegaly with hypoventilatory changes patient's above-mentioned chest x-ray findings are secondary to his obesity rather than CHF. Patient does not appear to have any focal neurological deficits. Unable to obtain any review of systems because of his altered mental status 11/23/2024 Patient seen and evaluated in follow-up with sitter at the bedside as patient continues to have erratic behavior and refusing most treatment. Psychiatry consulted for further evaluation and altered mentation. Patient continues to be somewhat altered and confused was talking more. Will also consult neurology and appreciate input and recommendations. Case management/social work consulted as well. Patient is afebrile denies chest pain or shortness of breath. Patient is tolerating diet with no reported nausea or vomiting. Recommend follow-up labs and replace electrolytes as needed. Encourage daily hygiene as patient is odorous and unkempt. 11/24/2024 Patient is seen in follow-up today continues with the sitter at the bedside much more pleasant and having more conversation although continues to be confused and altered. Patient's vital signs are stable and patient is afebrile. Repeat labs this morning reveal a sodium of 141 with a potassium of 4.5, BUN is 9.2 with a creatinine of 0.9, hemoglobin A1c is 5.7, TSH within normal limits at 4.5, treponema screening is negative. Neurology attempted an EEG and has ordered an MRI although patient has refused and is refusing most medications and treatments. Psych to reevaluate the patient as well. IM medications given per psychiatry. 11/25/2024 Patient is seen in follow-up today currently sleeping as patient did receive Zyprexa this morning and underwent EEG. Report is currently pending and neurology along with psychiatry following. Patient is afebrile there is no reports of chest pain or shortness of breath. Patient is tolerating diet and has not had any nausea or vomiting. MRI is ordered and pending although unable to receive as patient is refusing and there is no other family members to prov magdiel consent and neurology ordering repeat CT brain. Initial CT was negative. 11/28/2024 Patient is seen in follow-up today mentation is improving although continues with confusion. Apparently there is a daughter who is working on filing a missing reports claim that she has not talked to him in over a week. Patient is scheduled for MRI today and appears somewhat more agreeable. Continue current medication regimen and psychiatry following as well. Psychiatry reporting he does not meet criteria for psychiatric unit and also does not have capacity for decision-making. Patient is afebrile denies chest pain or shortness of breath. Patient has been tolerating diet with no reported nausea or vomiting. Patient has been up and walking to the bathroom independently. 11/29/2024 Patient is seen and evaluated in follow-up today is pleasant and appropriate and cooperative with care. MRI was negative and neurology following recommending possible LP although Lovenox was given. Will consult pain management/anesthesia for possible LP and patient is agreeable and daughter aware. Social work audi aguila along with psychiatry and psychiatry has signed off recommending that patient does not meet inpatient criteria. Will discuss further with social work once LP is performed to discuss discharge planning and treatment plan moving forward. 11/30/2024 Patient is seen and evaluated this morning scheduled to undergo LP with pain management/anesthesia. Will await report and discuss further with neurology regarding treatment plan moving forward. Psychiatry has evaluated the patient and signed off although patient continues to be confused and per daughter this is not his baseline as he is alert and oriented, lives alone and is independent. Patient with no reports of chest pain or shortness of breath. Patient denying any nausea or vomiting and has been tolerating diet. Review of systems: Constitutional: No reports of fatigue, fever, or chills Cardiovascular: No reports of chest pain or palpitations Respiratory: No reports of shortness of breath or cough GI: No reports of nausea, vomiting, or diarrhea : Denies pain or burning or frequency with urination Neurovascular: No reports of weakness or numbness All medications have been reviewed PHYSICAL EXAMINATION: GENERAL: The patient is alert, x 1, hyperactive, mentation waxing waning although slightly improved and more cooperative, not in any acute distress. Well developed, well nourished. Unkempt, less odorous, morbidly obese HEENT: Pupils are round and equally reacting to light. EOMI. No scleral icterus. No conjunctival pallor. Normocephalic, atraumatic. No pharyngeal erythema. No thyromegaly. CARDIOVASCULAR: S1 and S2 muffled PULMONARY: Chest is clear to auscultation, no wheezing or crackles. ABDOMEN: Soft, obese, nontender, nondistended, normoactive bowel sounds. No palpable organomegaly. MUSCULOSKELETAL: No joint swelling or deformity. EXTREMITIES: No cyanosis, clubbing, or pedal edema. NEUROLOGICAL: Gross neurological examination did not reveal any focal deficits. SKIN: No rashes. Assessment: -Altered mental status, possible metabolic/toxic encephalopathy appears to be drug-induced, medication induced UDS was negative. Patient is nontoxic, low possibility of sepsis or stroke. -Ruled out sepsis as patient remains afebrile and white count is not elevated -Ruled out stroke, MRI negative today 11/28/2024 -positive JHOANA -Obesity possibility of sleep apnea -GI prophylaxis -DVT prophylaxis: Lovenox - Full code Plan: Patient was admitted with altered mentation with erratic hyperactive behavior with concerns of possible medication or drug induced alteration although patient reports is not taking any medications and denies any drug use. Patient is status post EEG after receiving IM Zyprexa and there was some slowing although no epileptiform discharges or abnormalities noted. Patient is status post MRI of the brain which is negative for acute process and CVA ruled out Apparently there is a daughter who is the patient's power of collections attorney, that was looking for him as he was missing. MRI is negative. Psychiatry reevaluated and reports he does not meet inpatient criteria and they do not treat delirium recommending outpatient follow-up and signed off the case again Discussed further with neurology and is scheduled for LP today with anesthesia. Will await report social work following regarding discharge planning. Awaiting a safe discharge plan and to discuss further with daughter. Daughter is power of collections attorney and needs to be notified in the event of needing possible placement or long-term placement. Patient is not allowed to leave AGAINST MEDICAL ADVICE given his mentation. Patient is not able to make any medical decisions at this time and may need a guardian. Overall prognosis is guarded The impression and plan of care has been dictated by Riddhi Lee, Nurse Practitioner as directed. Dr. Bob MD I have performed a history and examination and MDM of this patient, discussed the same with the dictator, and agree with the dictator's assessment and plan as written ,documented as a scribe. Based on total visit time, I have performed more than 50% of the visit. Objective - Vital Signs Vital signs: Vital Signs Temp 97.9 F 11/30/24 07:14 Pulse 75 11/30/24 07:14 Resp 16 11/30/24 07:14 BP 125/85 11/30/24 07:14 Pulse Ox 98 11/30/24 07:14 FiO2 Intake & Output 11/29/24 11/30/24 11/30/24 18:59 06:59 18:59 Weight 111.13 kg Other: Voiding Method Toilet Toilet # Voids 4 2 - Labs CBC & Chem 7: 11/30/24 08:01 11/30/24 08:01 Labs: Abnormal Lab Results - Last 24 Hours (Table) 11/29/24 11/30/24 Range/Units 10:53 08:01 Carbon Dioxide 21 L (22-30) mmol/L Glucose 103 H (74-99) mg/dL ALT 69 H (4-49) U/L JHOANA Screen POSITIVE A (Negative)
[2024-12-01] MEDS: ENOXAPARIN 40 MG/0.4 ML SYRINGE SQ SCH (08:50)
[2024-12-01 13:36] LABS: VDRL, Qualitative CSF Nonreactive (Nonreactive)
[2024-12-01 14:09] LABS: C-ANCA <1:20 Titer (<1:20)
--- NOTE | 2024-12-01 23:44 | P.PN ---
Subjective Progress Note Date: 12/01/24 69-year-old male came in with altered mental status. His confusion appears to be more mostly drug-induced or medication induced as patient is awake alert hyperactive. Patient is conversing normally but speaking nonsense. CT of the head showed chronic microvascular ischemic changes. CT angio the head of neck is pending urine drug screen is pending. No information about his home medications at this time patient clinically does not appear to be septic does not have any fever he does not have a leukocytosis chest x-ray showed mild cardiomegaly with hypoventilatory changes patient's above-mentioned chest x-ray findings are secondary to his obesity rather than CHF. Patient does not appear to have any focal neurological deficits. Unable to obtain any review of systems because of his altered mental status 11/23/2024 Patient seen and evaluated in follow-up with sitter at the bedside as patient continues to have erratic behavior and refusing most treatment. Psychiatry consulted for further evaluation and altered mentation. Patient continues to be somewhat altered and confused was talking more. Will also consult neurology and appreciate input and recommendations. Case management/social work consulted as well. Patient is afebrile denies chest pain or shortness of breath. Patient is tolerating diet with no reported nausea or vomiting. Recommend follow-up labs and replace electrolytes as needed. Encourage daily hygiene as patient is odorous and unkempt. 11/24/2024 Patient is seen in follow-up today continues with the sitter at the bedside much more pleasant and having more conversation although continues to be confused and altered. Patient's vital signs are stable and patient is afebrile. Repeat labs this morning reveal a sodium of 141 with a potassium of 4.5, BUN is 9.2 with a creatinine of 0.9, hemoglobin A1c is 5.7, TSH within normal limits at 4.5, treponema screening is negative. Neurology attempted an EEG and has ordered an MRI although patient has refused and is refusing most medications and treatments. Psych to reevaluate the patient as well. IM medications given per psychiatry. 11/25/2024 Patient is seen in follow-up today currently sleeping as patient did receive Zyprexa this morning and underwent EEG. Report is currently pending and neurology along with psychiatry following. Patient is afebrile there is no reports of chest pain or shortness of breath. Patient is tolerating diet and has not had any nausea or vomiting. MRI is ordered and pending although unable to receive as patient is refusing and there is no other family members to prov magdiel consent and neurology ordering repeat CT brain. Initial CT was negative. 11/28/2024 Patient is seen in follow-up today mentation is improving although continues with confusion. Apparently there is a daughter who is working on filing a missing reports claim that she has not talked to him in over a week. Patient is scheduled for MRI today and appears somewhat more agreeable. Continue current medication regimen and psychiatry following as well. Psychiatry reporting he does not meet criteria for psychiatric unit and also does not have capacity for decision-making. Patient is afebrile denies chest pain or shortness of breath. Patient has been tolerating diet with no reported nausea or vomiting. Patient has been up and walking to the bathroom independently. 11/29/2024 Patient is seen and evaluated in follow-up today is pleasant and appropriate and cooperative with care. MRI was negative and neurology following recommending possible LP although Lovenox was given. Will consult pain management/anesthesia for possible LP and patient is agreeable and daughter aware. Social work audi aguila along with psychiatry and psychiatry has signed off recommending that patient does not meet inpatient criteria. Will discuss further with social work once LP is performed to discuss discharge planning and treatment plan moving forward. 11/30/2024 Patient is seen and evaluated this morning scheduled to undergo LP with pain management/anesthesia. Will await report and discuss further with neurology regarding treatment plan moving forward. Psychiatry has evaluated the patient and signed off although patient continues to be confused and per daughter this is not his baseline as he is alert and oriented, lives alone and is independent. Patient with no reports of chest pain or shortness of breath. Patient denying any nausea or vomiting and has been tolerating diet. 12/01/2024 Patient is seen in follow-up today currently pleasant although continues with agitation at times. Neurology following and is status post LP showing protein and glucose minimally elevated. JHOANA t screen is positive and awaiting titer. No reports of chest pain or shortness of breath. Patient reports tolerating diet with no reported nausea or vomiting. Patient has been getting up to the bathroom with no difficulties. Given patient's continued mentation daughter is extremely concerned that this is not his baseline and will reconsult psychiatry for further evaluation. Review of systems: Constitutional: No reports of fatigue, fever, or chills Cardiovascular: No reports of chest pain or palpitations Respiratory: No reports of shortness of breath or cough GI: No reports of nausea, vomiting, or diarrhea : Denies pain or burning or frequency with urination Neurovascular: No reports of weakness or numbness All medications have been reviewed PHYSICAL EXAMINATION: GENERAL: The patient is alert, x 1, hyperactive, mentation waxing waning although slightly improved and more cooperative, not in any acute distress. Well developed, well nourished. Unkempt, less odorous, morbidly obese HEENT: Pupils are round and equally reacting to light. EOMI. No scleral icterus. No conjunctival pallor. Normocephalic, atraumatic. No pharyngeal erythema. No thyromegaly. CARDIOVASCULAR: S1 and S2 muffled PULMONARY: Chest is clear to auscultation, no wheezing or crackles. ABDOMEN: Soft, obese, nontender, nondistended, normoactive bowel sounds. No palpable organomegaly. MUSCULOSKELETAL: No joint swelling or deformity. EXTREMITIES: No cyanosis, clubbing, or pedal edema. NEUROLOGICAL: Gross neurological examination did not reveal any focal deficits. SKIN: No rashes. Assessment: -Altered mental status, possible metabolic/toxic encephalopathy appears to be drug-induced, medication induced UDS was negative. Patient is nontoxic, low possibility of sepsis or stroke. -Ruled out sepsis as patient remains afebrile and white count is not elevated -Ruled out stroke, MRI negative today 11/28/2024 -Minimally elevated D-dimer, PE ruled out on CT -positive JHOANA, titers pending -Obesity possibility of sleep apnea -GI prophylaxis -DVT prophylaxis: Lovenox - Full code Plan: Patient was admitted with altered mentation with erratic hyperactive behavior with concerns of possible medication or drug induced alteration although patient reports is not taking any medications and denies any drug use. Patient is status post EEG and there was some slowing although no epileptiform discharges or abnormalities noted. Patient is status post MRI of the brain which is negative for acute process and CVA ruled out Apparently there is a daughter who is the patient's power of real estate attorney, that was looking for him as he was missing. MRI is negative. Psychiatry reevaluated and reports he does not meet inpatient criteria and they do not treat delirium recommending outpatient follow-up and signed off the case again. Will reconsult psychiatry again for further evaluation as patient's family is extremely concerned that this is not his baseline and patient continues to act bizarre and erratic at times. Patient is status post LP showing minimally elevated glucose JHOANA screen is positive and awaiting JHOANA titer social work following regarding discharge planning. Awaiting a safe discharge plan and to discuss further with daughter. Daughter is power of real estate attorney and needs to be notified in the event of needing possible placement or long-term placement. Patient is not allowed to leave AGAINST MEDICAL ADVICE given his mentation. Patient is not able to make any medical decisions at this time and may need a guardian. Overall prognosis is guarded The impression and plan of care has been dictated by Riddhi Lee, Nurse Practitioner as directed. Dr. Bob MD I have performed a history and examination and MDM of this patient, discussed the same with the dictator, and agree with the dictator's assessment and plan as written ,documented as a scribe. Based on total visit time, I have performed more than 50% of the visit. Objective - Vital Signs Vital signs: Vital Signs Temp 97.6 F 12/01/24 18:04 Pulse 116 H 12/01/24 18:04 Resp 16 12/01/24 18:04 BP 131/81 12/01/24 18:04 Pulse Ox 99 12/01/24 18:04 FiO2 Intake & Output 12/01/24 12/01/24 12/02/24 06:59 18:59 06:59 Intake Total 355 Balance 355 Intake: Oral 355 Other: Voiding Method Toilet Toilet # Voids 3 # Bowel Movements 1 - Labs CBC & Chem 7: 11/30/24 08:01 11/30/24 08:01 Labs: Microbiology - Last 24 Hours (Table) 11/30/24 15:08 Blood Culture - Preliminary Blood 11/30/24 13:45 CSF Gram Stain - Preliminary Cerebral Spinal Fluid CSF Culture - Preliminary
--- NOTE | 2024-12-02 13:48 | P.PN ---
Progress Note - Text Progress Note Date: 12/02/24 Interval history: Patient was seen today for psychiatric follow-up. Patient was sitting on the chair watching television. He continues to have some inappropriate responses to questions, but repetitive at times. He was attempting to cooperate as much as he could. Claims that he is sleeping fairly, has been taking his medications. He was eating a sandwich. Followed most directions from caption writer. He was oriented to name only. Denies any depression or anxiety at this time. Denies any auditory or visual extensions denies any suicidal homicidal ideations intent or plan. MENTAL STATUS EXAM: General Appearance: Patient appears to be stated age is alert. Patient appears to have improved hygiene and grooming wearing hospital gown with good eye contact. Behavior: The patient was sitting on the chair, follow some directions. Speech: Patient's speech is fluent and nonpressured. Mood/Affect: Patient reports their mood is "good", affect is congruent Suicidality/Homicidality: Patient denies having any suicidal or homicidal ideation intent or plan. Perceptions: Patient denies any visual hallucinations and denies any auditory hallucinations Though content/process: There is no evidence of any delusional thought content. Some inappropriate answers, repetitive at times. Memory and concentration: The patient was not AO x 3 but AO x 1 Judgment and insight: Limited IMPRESSIONS: Delirium, unknown etiology versus dementia PLAN: -At this time patient DOES NOT meet criteria for inpatient psychiatric admission. -Patient DOES NOT have decision making capacity at this time and is unable to reason through and communicate/appreciate the risks, benefits and alternatives to treatment. -Delirium precautions recommended with patient including - avoiding use of narcotics and [employer] sedatives, limit anticholinergic medications when possible, frequent re-orientation, minimize use of restraints, open window shades during the day and close them at night -Would recommend the following medication changes/additions: Increased Seroquel 100 mg bid for mood stabilization/insomnia Seroquel 3 times daily as needed for agitation Zyprexa IM 3 times daily as needed for severe agitation/aggression. -Communicated plan to patient's nurse and -Psychiatry will sign off at this time -Please contact with any questions.
--- NOTE | 2024-12-02 14:41 | P.PN ---
Subjective Progress Note Date: 12/02/24 69-year-old male came in with altered mental status. His confusion appears to be more mostly drug-induced or medication induced as patient is awake alert hyperactive. Patient is conversing normally but speaking nonsense. CT of the head showed chronic microvascular ischemic changes. CT angio the head of neck is pending urine drug screen is pending. No information about his home medications at this time patient clinically does not appear to be septic does not have any fever he does not have a leukocytosis chest x-ray showed mild cardiomegaly with hypoventilatory changes patient's above-mentioned chest x-ray findings are secondary to his obesity rather than CHF. Patient does not appear to have any focal neurological deficits. Unable to obtain any review of systems because of his altered mental status 11/23/2024 Patient seen and evaluated in follow-up with sitter at the bedside as patient continues to have erratic behavior and refusing most treatment. Psychiatry consulted for further evaluation and altered mentation. Patient continues to be somewhat altered and confused was talking more. Will also consult neurology and appreciate input and recommendations. Case management/social work consulted as well. Patient is afebrile denies chest pain or shortness of breath. Patient is tolerating diet with no reported nausea or vomiting. Recommend follow-up labs and replace electrolytes as needed. Encourage daily hygiene as patient is odorous and unkempt. 11/24/2024 Patient is seen in follow-up today continues with the sitter at the bedside much more pleasant and having more conversation although continues to be confused and altered. Patient's vital signs are stable and patient is afebrile. Repeat labs this morning reveal a sodium of 141 with a potassium of 4.5, BUN is 9.2 with a creatinine of 0.9, hemoglobin A1c is 5.7, TSH within normal limits at 4.5, treponema screening is negative. Neurology attempted an EEG and has ordered an MRI although patient has refused and is refusing most medications and treatments. Psych to reevaluate the patient as well. IM medications given per psychiatry. 11/25/2024 Patient is seen in follow-up today currently sleeping as patient did receive Zyprexa this morning and underwent EEG. Report is currently pending and neurology along with psychiatry following. Patient is afebrile there is no reports of chest pain or shortness of breath. Patient is tolerating diet and has not had any nausea or vomiting. MRI is ordered and pending although unable to receive as patient is refusing and there is no other family members to prov magdiel consent and neurology ordering repeat CT brain. Initial CT was negative. 11/28/2024 Patient is seen in follow-up today mentation is improving although continues with confusion. Apparently there is a daughter who is working on filing a missing reports claim that she has not talked to him in over a week. Patient is scheduled for MRI today and appears somewhat more agreeable. Continue current medication regimen and psychiatry following as well. Psychiatry reporting he does not meet criteria for psychiatric unit and also does not have capacity for decision-making. Patient is afebrile denies chest pain or shortness of breath. Patient has been tolerating diet with no reported nausea or vomiting. Patient has been up and walking to the bathroom independently. 11/29/2024 Patient is seen and evaluated in follow-up today is pleasant and appropriate and cooperative with care. MRI was negative and neurology following recommending possible LP although Lovenox was given. Will consult pain management/anesthesia for possible LP and patient is agreeable and daughter aware. Social work audi aguila along with psychiatry and psychiatry has signed off recommending that patient does not meet inpatient criteria. Will discuss further with social work once LP is performed to discuss discharge planning and treatment plan moving forward. 11/30/2024 Patient is seen and evaluated this morning scheduled to undergo LP with pain management/anesthesia. Will await report and discuss further with neurology regarding treatment plan moving forward. Psychiatry has evaluated the patient and signed off although patient continues to be confused and per daughter this is not his baseline as he is alert and oriented, lives alone and is independent. Patient with no reports of chest pain or shortness of breath. Patient denying any nausea or vomiting and has been tolerating diet. 12/01/2024 Patient is seen in follow-up today currently pleasant although continues with agitation at times. Neurology following and is status post LP showing protein and glucose minimally elevated. JHOANA t screen is positive and awaiting titer. No reports of chest pain or shortness of breath. Patient reports tolerating diet with no reported nausea or vomiting. Patient has been getting up to the bathroom with no difficulties. Given patient's continued mentation daughter is extremely concerned that this is not his baseline and will reconsult psychiatry for further evaluation. 12/02/2024 Patient is seen in follow-up with no acute overnight issues noted. Per nursing staff patient is pleasant today and cooperative with neurology following recommending to continue to have reevaluation by psychiatry. Psychiatry was consulted again for reevaluation as daughter is extremely concerned about his overall mentation. 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 Patient is afebrile with no reports of chest pain or shortness of breath. Patient has been tolerating diet with no reported nausea or vomiting. Patient is up and walking to the bathroom independently with no difficulties. Will await psychiatry reevaluation and appreciate input and recommendations regarding possible medication adjustments. Family to follow-up with social work after the holiday given insurance is closed to discuss discharge planning and if patient may require [facility]FC placement. Review of systems: Constitutional: No reports of fatigue, fever, or chills Cardiovascular: No reports of chest pain or palpitations Respiratory: No reports of shortness of breath or cough GI: No reports of nausea, vomiting, or diarrhea : Denies pain or burning or frequency with urination Neurovascular: No reports of weakness or numbness All medications have been reviewed PHYSICAL EXAMINATION: GENERAL: The patient is alert, x 1, hyperactive at times, mentation waxing waning although slightly improved and more cooperative, not in any acute distress. Well developed, well nourished. Unkempt, less odorous, morbidly obese HEENT: Pupils are round and equally reacting to light. EOMI. No scleral icterus. No conjunctival pallor. Normocephalic, atraumatic. No pharyngeal erythema. No thyromegaly. CARDIOVASCULAR: S1 and S2 muffled PULMONARY: Chest is clear to auscultation, no wheezing or crackles. ABDOMEN: Soft, obese, nontender, nondistended, normoactive bowel sounds. No palpable organomegaly. MUSCULOSKELETAL: No joint swelling or deformity. EXTREMITIES: No cyanosis, clubbing, or pedal edema. NEUROLOGICAL: Gross neurological examination did not reveal any focal deficits. SKIN: No rashes. Assessment: -Altered mental status, possible metabolic/toxic encephalopathy, concerning for dementia versus delirium. UDS was negative. Patient is nontoxic, low possibility of sepsis or stroke. -Ruled out sepsis as patient remains afebrile and white count is not elevated -Ruled out stroke, MRI negative today 11/28/2024 -Minimally elevated D-dimer, PE ruled out on CT -positive JHOANA, titers pending -Obesity possibility of sleep apnea -GI prophylaxis -DVT prophylaxis: Lovenox - Full code Plan: Patient was admitted with altered mentation with erratic hyperactive behavior with concerns of possible medication or drug induced alteration although patient reports is not taking any medications and denies any drug use. Patient is status post EEG and there was some slowing although no epileptiform discharges or abnormalities noted. Patient is status post MRI of the brain which is negative for acute process and CVA ruled out Apparently there is a daughter who is the patient's power of research attorney, that was looking for him as he was missing. MRI is negative. Psychiatry reevaluated and reports he does not meet inpatient criteria and they do not treat delirium recommending outpatient follow-up and signed off the case again. Have reconsulted psychiatry once again for further evaluation as patient's family is extremely concerned that this is not his baseline and patient continues to act bizarre and erratic at times. Appears to be a dementia type picture with progression Patient is status post LP showing minimally elevated glucose otherwise normal JHOANA screen is positive and awaiting JHOANA titer social work following regarding discharge planning. Awaiting a safe discharge plan and to discuss further with daughter. Daughter is power of research attorney and needs to be notified in the event of needing possible placement or long-term placement. Patient is not allowed to leave AGAINST MEDICAL ADVICE given his mentation. Patient is not able to make any medical decisions at this time and may need a guardian. Overall prognosis is guarded The impression and plan of care has been dictated by Riddhi Lee, Nurse Practitioner as directed. Dr. Bob MD I have performed a history and examination and MDM of this patient, discussed the same with the dictator, and agree with the dictator's assessment and plan as written ,documented as a scribe. Based on total visit time, I have performed more than 50% of the visit. Objective - Vital Signs Vital signs: Vital Signs Temp 97.8 F 12/02/24 06:58 Pulse 65 12/02/24 06:58 Resp 18 12/02/24 06:58 BP 142/83 12/02/24 06:58 Pulse Ox 99 12/02/24 06:58 FiO2 Intake & Output 12/01/24 12/02/24 12/02/24 18:59 06:59 18:59 Intake Total 355 Balance 355 Intake: Oral 355 Other: Voiding Method Toilet # Voids 2 # Bowel Movements 1 - Labs CBC & Chem 7: 11/30/24 08:01 11/30/24 08:01 Labs: Microbiology - Last 24 Hours (Table) 11/30/24 13:45 CSF Gram Stain - Preliminary Cerebral Spinal Fluid CSF Culture - Preliminary 11/30/24 15:08 Blood Culture - Preliminary Blood
--- NOTE | 2024-12-02 17:48 | P.PN ---
Subjective Progress Note Date: 12/02/24 I am following-up with the patient and he is about the same. He seems a bit more calmer today compared to couple days ago. Still pending lab work-up results. Objective - Vital Signs Vital signs: Vital Signs Temp 98.0 F 12/02/24 14:25 Pulse 82 12/02/24 14:25 Resp 17 12/02/24 14:25 BP 123/79 12/02/24 14:25 Pulse Ox 99 12/02/24 14:25 FiO2 Intake & Output 12/01/24 12/02/24 12/02/24 18:59 06:59 18:59 Intake Total 355 Balance 355 Intake: Oral 355 Other: Voiding Method Toilet # Voids 2 2 # Bowel Movements 1 - Exam General: Sitting in a recliner chair and is not in acute distress. Neuro: The patient is awake alert oriented to self. She continues to have significant aphasia and repeating self. He will follow some simple commands and by mimicking. No facial weakness. No dysarthria. Motor: Hard to assess individual muscle strength because of his overall cooperation but he will lift up all upper and lower extremity above gravity pills symmetrical - Labs CBC & Chem 7: 11/30/24 08:01 11/30/24 08:01 Labs: Microbiology - Last 24 Hours (Table) 11/30/24 13:45 CSF Gram Stain - Preliminary Cerebral Spinal Fluid CSF Culture - Preliminary 11/30/24 15:08 Blood Culture - Preliminary Blood Assessment and Plan Assessment: Acute delirium with with agitation. Unknown etiology. Has positive JHOANA but pending titer and unsure if truly this is causing symptoms. CSF study is unremarkable, nucleated cells are 1. CSF viral panel is negative. HIV is negative. ESR is normal.TSH, folate are within normal limits. MRI Brain is negative for acute process. History of undiagnosed high functioning autism. Dyslexia X-tobacco use Borderline B12/folate. Prostate cancer, declining treatment Depression Plan: EEG was performed, which was abnormal due to background slowing, suggestive of mild encephalopathy. No focal, lateralized or epileptiform activity was seen. Brain MRI obtained yesterday shows no evidence of intracranial mass, acute/subacute infarct or abnormal enhancement, nonspecific white matter changes likely related to small vessel ischemic disease JHOANA screen is positive and pending titer. HIV testing negative. Await NMDA antibodies and Herpes testing. B12 275, folate 7.7, TSH 4.5, hemoglobin A1c 5.7. RPR nonreactive. Patient's B12 and folate level are borderline. Continue folic acid 1 mg p.o. daily, cyanocobalamin 1000 mcg p.o. daily Psychiatry signed off Will defer the rest of medical management to primary team and other specialist. Will follow-up with patient sporadically. Dr. Lockwood will resume neurology service tomorrow A.M. if needed and Dr. García this Thursday A.M. Time with Patient: Less than 30
[2024-12-03] MEDS: QUEtiapine 100 MG TAB PO SCH (09:31)
--- NOTE | 2024-12-03 16:27 | P.PN ---
Subjective Progress Note Date: 12/03/24 69-year-old male came in with altered mental status. His confusion appears to be more mostly drug-induced or medication induced as patient is awake alert hyperactive. Patient is conversing normally but speaking nonsense. CT of the head showed chronic microvascular ischemic changes. CT angio the head of neck is pending urine drug screen is pending. No information about his home medications at this time patient clinically does not appear to be septic does not have any fever he does not have a leukocytosis chest x-ray showed mild cardiomegaly with hypoventilatory changes patient's above-mentioned chest x-ray findings are secondary to his obesity rather than CHF. Patient does not appear to have any focal neurological deficits. Unable to obtain any review of systems because of his altered mental status 11/23/2024 Patient seen and evaluated in follow-up with sitter at the bedside as patient c ontinues to have erratic behavior and refusing most treatment. Psychiatry consulted for further evaluation and altered mentation. Patient continues to be somewhat altered and confused was talking more. Will also consult neurology and appreciate input and recommendations. Case management/social work consulted as well. Patient is afebrile denies chest pain or shortness of breath. Patient is tolerating diet with no reported nausea or vomiting. Recommend follow-up labs and replace electrolytes as needed. Encourage daily hygiene as patient is odorous and unkempt. 11/24/2024 Patient is seen in follow-up today continues with the sitter at the bedside much more pleasant and having more conversation although continues to be confused and altered. Patient's vital signs are stable and patient is afebrile. Repeat labs this morning reveal a sodium of 141 with a potassium of 4.5, BUN is 9.2 with a creatinine of 0.9, hemoglobin A1c is 5.7, TSH within normal limits at 4.5, treponema screening is negative. Neurology attempted an EEG and has ordered an MRI although patient has refused and is refusing most medications and treatments. Psych to reevaluate the patient as well. IM medications given per psychiatry. 11/25/2024 Patient is seen in follow-up today currently sleeping as patient did receive Zyprexa this morning and underwent EEG. Report is currently pending and neurology along with psychiatry following. Patient is afebrile there is no reports of chest pain or shortness of breath. Patient is tolerating diet and has not had any nausea or vomiting. MRI is ordered and pending although unable to receive as patient is refusing and there is no other family members to provide consent and neurology ordering repeat CT brain. Initial CT was negative. 11/28/2024 Patient is seen in follow-up today mentation is improving although continues with confusion. Apparently there is a daughter who is working on filing a missing reports claim that she has not talked to him in over a week. Patient is scheduled for MRI today and appears somewhat more agreeable. Continue current medication regimen and psychiatry following as well. Psychiatry reporting he does not meet criteria for psychiatric unit and also does not have capacity for decision-making. Patient is afebrile denies chest pain or shortness of breath. Patient has been tolerating diet with no reported nausea or vomiting. Patient has been up and walking to the bathroom independently. 11/29/2024 Patient is seen and evaluated in follow-up today is pleasant and appropriate and cooperative with care. MRI was negative and neurology following recommending possible LP although Lovenox was given. Will consult pain management/anesthesia for possible LP and patient is agreeable and daughter aware. Social work foll owing along with psychiatry and psychiatry has signed off recommending that patient does not meet inpatient criteria. Will discuss further with social work once LP is performed to discuss discharge planning and treatment plan moving forward. 11/30/2024 Patient is seen and evaluated this morning scheduled to undergo LP with pain management/anesthesia. Will await report and discuss further with neurology regarding treatment plan moving forward. Psychiatry has evaluated the patient and signed off although patient continues to be confused and per daughter this is not his baseline as he is alert and oriented, lives alone and is independent. Patient with no reports of chest pain or shortness of breath. Patient denying any nausea or vomiting and has been tolerating diet. 12/01/2024 Patient is seen in follow-up today currently pleasant although continues with agitation at times. Neurology following and is status post LP showing protein and glucose minimally elevated. JHOANA t screen is positive and awaiting titer. No reports of chest pain or shortness of breath. Patient reports tolerating diet with no reported nausea or vomiting. Patient has been getting up to the bathroom with no difficulties. Given patient's continued mentation daughter is extremely concerned that this is not his baseline and will reconsult psychiatry for further evaluation. 12/02/2024 Patient is seen in follow-up with no acute overnight issues noted. Per nursing staff patient is pleasant today and cooperative with neurology following recommending to continue to have reevaluation by psychiatry. Psychiatry was consulted again for reevaluation as daughter is extremely concerned about his overall mentation. 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 Patient is afebrile with no reports of chest pain or shortness of breath. Patient has been tolerating diet with no reported nausea or vomiting. Patient is up and walking to the bathroom independently with no difficulties. Will await psychiatry reevaluation and appreciate input and recommendations regarding possible medication adjustments. Family to follow-up with social work after the holiday given insurance is closed to discuss discharge planning and if patient may require AFC placement. 12/03/2024 Patient evaluated today sitting up in the chair. He is awake alert oriented pleasant cooperative. He continues on a course of Zyprexa and Seroquel. Psychiatry reevaluated the patient. He is currently pending follow-up by social work on Thursday to discuss discharge planning and possible AFC placement. Review of systems: Constitutional: No reports of fatigue, fever, or chills Cardiovascular: No reports of chest pain or palpitations Respiratory: No reports of shortness of breath or cough GI: No reports of nausea, vomiting, or diarrhea : Denies pain or burning or frequency with urination Neurovascular: No reports of weakness or numbness All medications have been reviewed PHYSICAL EXAMINATION: GENERAL: The patient is alert, x 1, hyperactive at times, mentation waxing waning although slightly improved and more cooperative, not in any acute distress. Well developed, well nourished. Unkempt, less odorous, morbidly obese HEENT: Pupils are round and equally reacting to light. EOMI. No scleral icterus. No conjunctival pallor. Normocephalic, atraumatic. No pharyngeal erythema. No thyromegaly. CARDIOVASCULAR: S1 and S2 muffled PULMONARY: Chest is clear to auscultation, no wheezing or crackles. ABDOMEN: Soft, obese, nontender, nondistended, normoactive bowel sounds. No palpable organomegaly. MUSCULOSKELETAL: No joint swelling or deformity. EXTREMITIES: No cyanosis, clubbing, or pedal edema. NEUROLOGICAL: Gross neurological examination did not reveal any focal deficits. SKIN: No rashes. Assessment: -Altered mental status, possible metabolic/toxic encephalopathy, concerning for dementia versus delirium. UDS was negative. Patient is nontoxic, low possibility of sepsis or stroke. -Ruled out sepsis as patient remains afebrile and white count is not elevated -Ruled out stroke, MRI negative today 11/28/2024 -Minimally elevated D-dimer, PE ruled out on CT -positive JHOANA, titers pending -Obesity possibility of sleep apnea -GI prophylaxis -DVT prophylaxis: Lovenox - Full code Plan: Patient was admitted with altered mentation with erratic hyperactive behavior with concerns of possible medication or drug induced alteration although patient reports is not taking any medications and denies any drug use. Patient is status post EEG and there was some slowing although no epileptiform discharges or abnormalities noted. Patient is status post MRI of the brain which is negative for acute process and CVA ruled out Apparently there is a daughter who is the patient's power of staff attorney, that was looking for him as he was missing. MRI is negative. Psychiatry reevaluated and reports he does not meet inpatient criteria and they do not treat delirium recommending outpatient follow-up and signed off the case again. Have reconsulted psychiatry once again for further evaluation as patient's family is extremely concerned that this is not his baseline and patient continues to act bizarre and erratic at times. Appears to be a dementia type picture with progression Psychiatry have re-evaluated the patient and signed off. Seroquel daily has been added. Patient is status post LP showing minimally elevated glucose otherwise normal JHOANA screen is positive and awaiting JHOANA titer social work following regarding discharge planning. Awaiting a safe discharge plan and to discuss further with daughter. Daughter is power of staff attorney and needs to be notified in the event of needing possible placement or long-term placement. Patient is not allowed to leave AGAINST MEDICAL ADVICE given his mentation. Patient is not able to make any medical decisions at this time and may need a guardian. The impression and plan of care has been dictated by Laura Branch Nurse Practitioner as directed. Dr. Lenore MD I have performed a history and physical examination and medical decision making of this patient, discussed the same with the dictator, and agree with the dictators assessment and plan as written, documented as a scribe. Based on total visit time, I have performed more than 50% of this visit. Objective - Vital Signs Vital signs: Vital Signs Temp 97.6 F 12/03/24 13:47 Pulse 71 12/03/24 13:47 Resp 20 12/03/24 13:47 BP 153/74 12/03/24 13:47 Pulse Ox 99 12/03/24 13:47 FiO2 Intake & Output 12/02/24 12/03/24 12/03/24 18:59 06:59 18:59 Intake Total 222 540 444 Balance 222 540 444 Intake: Oral 222 540 444 Other: # Voids 1 3 # Bowel Movements 0 - Labs CBC & Chem 7: 11/30/24 08:01 11/30/24 08:01 Labs: Microbiology - Last 24 Hours (Table) 11/30/24 15:08 Blood Culture - Preliminary Blood Assessment and Plan Time with Patient: Less than 30
[2024-12-04 09:06] LABS: Anion Gap 11.70 mmol/L (4.00-12.00); BUN/Creat Ratio 11.44 Ratio (12.00-20.00); Blood Urea Nitrogen 10.3 mg/dL (9.0-27.0); Calcium 8.9 mg/dL (8.7-10.3); Carbon Dioxide 22.3 mmol/L (21.6-31.8); Chloride 107 mmol/L (96-109); Glucose 104 mg/dL (70-110); Potassium 4.3 mmol/L (3.5-5.5); Sodium 141 mmol/L (135-145)
--- NOTE | 2024-12-04 15:59 | P.PN ---
Subjective Progress Note Date: 12/04/24 69-year-old male came in with altered mental status. His confusion appears to be more mostly drug-induced or medication induced as patient is awake alert hyperactive. Patient is conversing normally but speaking nonsense. CT of the head showed chronic microvascular ischemic changes. CT angio the head of neck is pending urine drug screen is pending. No information about his home medications at this time patient clinically does not appear to be septic does not have any fever he does not have a leukocytosis chest x-ray showed mild cardiomegaly with hypoventilatory changes patient's above-mentioned chest x-ray findings are secondary to his obesity rather than CHF. Patient does not appear to have any focal neurological deficits. Unable to obtain any review of systems because of his altered mental status 11/23/2024 Patient seen and evaluated in follow-up with sitter at the bedside as patient c ontinues to have erratic behavior and refusing most treatment. Psychiatry consulted for further evaluation and altered mentation. Patient continues to be somewhat altered and confused was talking more. Will also consult neurology and appreciate input and recommendations. Case management/social work consulted as well. Patient is afebrile denies chest pain or shortness of breath. Patient is tolerating diet with no reported nausea or vomiting. Recommend follow-up labs and replace electrolytes as needed. Encourage daily hygiene as patient is odorous and unkempt. 11/24/2024 Patient is seen in follow-up today continues with the sitter at the bedside much more pleasant and having more conversation although continues to be confused and altered. Patient's vital signs are stable and patient is afebrile. Repeat labs this morning reveal a sodium of 141 with a potassium of 4.5, BUN is 9.2 with a creatinine of 0.9, hemoglobin A1c is 5.7, TSH within normal limits at 4.5, treponema screening is negative. Neurology attempted an EEG and has ordered an MRI although patient has refused and is refusing most medications and treatments. Psych to reevaluate the patient as well. IM medications given per psychiatry. 11/25/2024 Patient is seen in follow-up today currently sleeping as patient did receive Zyprexa this morning and underwent EEG. Report is currently pending and neurology along with psychiatry following. Patient is afebrile there is no reports of chest pain or shortness of breath. Patient is tolerating diet and has not had any nausea or vomiting. MRI is ordered and pending although unable to receive as patient is refusing and there is no other family members to provide consent and neurology ordering repeat CT brain. Initial CT was negative. 11/28/2024 Patient is seen in follow-up today mentation is improving although continues with confusion. Apparently there is a daughter who is working on filing a missing reports claim that she has not talked to him in over a week. Patient is scheduled for MRI today and appears somewhat more agreeable. Continue current medication regimen and psychiatry following as well. Psychiatry reporting he does not meet criteria for psychiatric unit and also does not have capacity for decision-making. Patient is afebrile denies chest pain or shortness of breath. Patient has been tolerating diet with no reported nausea or vomiting. Patient has been up and walking to the bathroom independently. 11/29/2024 Patient is seen and evaluated in follow-up today is pleasant and appropriate and cooperative with care. MRI was negative and neurology following recommending possible LP although Lovenox was given. Will consult pain management/anesthesia for possible LP and patient is agreeable and daughter aware. Social work foll owing along with psychiatry and psychiatry has signed off recommending that patient does not meet inpatient criteria. Will discuss further with social work once LP is performed to discuss discharge planning and treatment plan moving forward. 11/30/2024 Patient is seen and evaluated this morning scheduled to undergo LP with pain management/anesthesia. Will await report and discuss further with neurology regarding treatment plan moving forward. Psychiatry has evaluated the patient and signed off although patient continues to be confused and per daughter this is not his baseline as he is alert and oriented, lives alone and is independent. Patient with no reports of chest pain or shortness of breath. Patient denying any nausea or vomiting and has been tolerating diet. 12/01/2024 Patient is seen in follow-up today currently pleasant although continues with agitation at times. Neurology following and is status post LP showing protein and glucose minimally elevated. JHOANA t screen is positive and awaiting titer. No reports of chest pain or shortness of breath. Patient reports tolerating diet with no reported nausea or vomiting. Patient has been getting up to the bathroom with no difficulties. Given patient's continued mentation daughter is extremely concerned that this is not his baseline and will reconsult psychiatry for further evaluation. 12/02/2024 Patient is seen in follow-up with no acute overnight issues noted. Per nursing staff patient is pleasant today and cooperative with neurology following recommending to continue to have reevaluation by psychiatry. Psychiatry was consulted again for reevaluation as daughter is extremely concerned about his overall mentation. 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 Patient is afebrile with no reports of chest pain or shortness of breath. Patient has been tolerating diet with no reported nausea or vomiting. Patient is up and walking to the bathroom independently with no difficulties. Will await psychiatry reevaluation and appreciate input and recommendations regarding possible medication adjustments. Family to follow-up with social work after the holiday given insurance is closed to discuss discharge planning and if patient may require AFC placement. 12/03/2024 Patient evaluated today sitting up in the chair. He is awake alert oriented pleasant cooperative. He continues on a course of Zyprexa and Seroquel. Psychiatry reevaluated the patient. He is currently pending follow-up by social work on Thursday to discuss discharge planning and possible AFC placement. 12/04/2024 Patient is evaluated today in follow-up on the medical floor. Patient is awake alert oriented x 1. He continues on a course of Zyprexa and Seroquel. He is currently pending follow-up by social work on Thursday to discuss further discharge planning. He has no acute complaints at this time. Review of systems: Constitutional: No reports of fatigue, fever, or chills Cardiovascular: No reports of chest pain or palpitations Respiratory: No reports of shortness of breath or cough GI: No reports of nausea, vomiting, or diarrhea : Denies pain or burning or frequency with urination Neurovascular: No reports of weakness or numbness All medications have been reviewed PHYSICAL EXAMINATION: GENERAL: The patient is alert, x 1, hyperactive at times, mentation waxing waning although slightly improved and more cooperative, not in any acute distress. Well developed, well nourished. Unkempt, less odorous, morbidly obese HEENT: Pupils are round and equally reacting to light. EOMI. No scleral icterus. No conjunctival pallor. Normocephalic, atraumatic. No pharyngeal erythema. No thyromegaly. CARDIOVASCULAR: S1 and S2 muffled PULMONARY: Chest is clear to auscultation, no wheezing or crackles. ABDOMEN: Soft, obese, nontender, nondistended, normoactive bowel sounds. No palpable organomegaly. MUSCULOSKELETAL: No joint swelling or deformity. EXTREMITIES: No cyanosis, clubbing, or pedal edema. NEUROLOGICAL: Gross neurological examination did not reveal any focal deficits. SKIN: No rashes. Assessment: -Altered mental status, possible metabolic/toxic encephalopathy, concerning for dementia versus delirium. UDS was negative. Patient is nontoxic, low possibility of sepsis or stroke. -Ruled out sepsis as patient remains afebrile and white count is not elevated -Ruled out stroke, MRI negative today 11/28/2024 -Minimally elevated D-dimer, PE ruled out on CT -positive JHOANA, titers pending -Obesity possibility of sleep apnea -GI prophylaxis -DVT prophylaxis: Lovenox - Full code Plan: Patient was admitted with altered mentation with erratic hyperactive behavior with concerns of possible medication or drug induced alteration although patient reports is not taking any medications and denies any drug use. Patient is status post EEG and there was some slowing although no epileptiform discharges or abnormalities noted. Patient is status post MRI of the brain which is negative for acute process and CVA ruled out Apparently there is a daughter who is the patient's power of managing attorney, that was looking for him as he was missing. MRI is negative. Psychiatry reevaluated and reports he does not meet inpatient criteria and they do not treat delirium recommending outpatient follow-up and signed off the case again. Have reconsulted psychiatry once again for further evaluation as patient's family is extremely concerned that this is not his baseline and patient continues to act bizarre and erratic at times. Appears to be a dementia type picture with progression Psychiatry have re-evaluated the patient and signed off. Seroquel daily has been added. Patient is status post LP showing minimally elevated glucose otherwise normal JHAONA screen is positive and awaiting JHOANA titer social work following regarding discharge planning. Awaiting a safe discharge plan and to discuss further with daughter. Daughter is power of managing attorney and needs to be notified in the event of needing possible placement or long-term placement. Patient is not allowed to leave AGAINST MEDICAL ADVICE given his mentation. Patient is not able to make any medical decisions at this time and may need a guardian. The impression and plan of care has been dictated by Laura Branch, Nurse Practitioner as directed. Dr. Lenore MD I have performed a history and physical examination and medical decision making of this patient, discussed the same with the dictator, and agree with the dictators assessment and plan as written, documented as a scribe. Based on total visit time, I have performed more than 50% of this visit. Objective - Vital Signs Vital signs: Vital Signs Temp 97.8 F 12/04/24 06:42 Pulse 67 12/04/24 06:42 Resp 18 12/04/24 06:42 BP 140/79 12/04/24 06:42 Pulse Ox 97 12/04/24 06:42 FiO2 Intake & Output 12/03/24 12/04/24 12/04/24 18:59 06:59 18:59 Intake Total 562 236 Balance 562 236 Intake: Oral 562 236 Other: # Voids 3 2 - Labs CBC & Chem 7: 11/30/24 08:01 12/04/24 06:00 Labs: Abnormal Lab Results - Last 24 Hours (Table) 12/04/24 Range/Units 06:00 BUN/Creatinine Ratio 11.44 L (12.00-20.00) Ratio Microbiology - Last 24 Hours (Table) 11/30/24 13:45 CSF Gram Stain - Final Cerebral Spinal Fluid CSF Culture - Final 11/30/24 15:08 Blood Culture - Preliminary Blood Assessment and Plan Time with Patient: Less than 30
[2024-12-04 18:38] LABS: ANA Pattern Speckled; ANA Titer 1:320
[2024-12-04 18:40] LABS: ANA Pattern Speckled; ANA Titer 1:640
--- NOTE | 2024-12-05 17:15 | P.PN ---
Subjective Progress Note Date: 12/05/24 Principal diagnosis: Patient seen and examined at bedside today. Patient is about the same today. Vitals signs are stable. JHOANA titer 1:640, speckled pattern. C-ANCA and p-ANCA< 1:20. VZV DNA negative, norovirus 1 and 2 and rhinovirus not detected. Enterovirus PCR negative Objective - Vital Signs Vital signs: Vital Signs Temp 97.6 F 12/05/24 07:25 Pulse 68 12/05/24 07:25 Resp 15 12/05/24 07:25 BP 144/90 12/05/24 07:25 Pulse Ox 98 12/05/24 07:25 FiO2 Intake & Output 12/04/24 12/05/24 12/05/24 18:59 06:59 18:59 Intake Total 680 Balance 680 Intake: Oral 680 Other: Voiding Method Toilet # Voids 4 2 - Exam Patient is alert and awake. He was unable to answer questions quite appropriately significant aphasia and repeating self On muscle strength testing, there is no pronator drift and the strength is normal in arms and legs distally and proximally. Deep tendon reflexes are symmetric trace at the biceps, 0 brachioradialis, 1 at the knees and plantars indeterminate Sensory to touch is equal Cerebellar function showed no ataxia for [id number] testing. No dysdiadochokinesia. - Labs CBC & Chem 7: 11/30/24 08:01 12/04/24 06:00 Labs: Abnormal Lab Results - Last 24 Hours (Table) 12/04/24 Range/Units 06:00 BUN/Creatinine Ratio 11.44 L (12.00-20.00) Ratio Microbiology - Last 24 Hours (Table) 11/30/24 13:45 CSF Gram Stain - Final Cerebral Spinal Fluid CSF Culture - Final Assessment and Plan Assessment: Acute delirium with with agitation. Unknown etiology. Has positive JHOANA but pending titer and unsure if truly this is causing symptoms. CSF study is unremarkable, nucleated cells are 1. CSF viral panel is negative. HIV is negative. ESR is normal.TSH, folate are within normal limits. MRI Brain is negative for acute process. History of undiagnosed high functioning autism. Dyslexia X-tobacco use Borderline B12/folate. Prostate cancer, declining treatment Depression Plan: EEG was performed, which was abnormal due to background slowing, suggestive of mild encephalopathy. No focal, lateralized or epileptiform activity was seen. Brain MRI obtained yesterday shows no evidence of intracranial mass, acute/subacute infarct or abnormal enhancement, nonspecific white matter changes likely related to small vessel ischemic disease TSH 4.5, hemoglobin A1c 5.7. RPR nonreactive. HSV 1 and 2 negative. Adenovirus and CMV testing negative. JHOANA titer 1:640, speckled pattern. C-ANCA and p-ANCA< 1:20. , norovirus 1, 2 and rhinovirus not detected. Enterovirus PCR negative CSF studies : VZV DNA negative, clear appearance, colorless, 5 RBC, 1 nucleated cell, 57 glucose, 67 protein, VDRL negative, CSF culture negative Await NMDA antibodies B12 275, folate 7.7, Patient's B12 and folate level are borderline. Continue folic acid 1 mg p.o. daily, cyanocobalamin 1000 mcg p.o. daily Psychiatry signed off Dictation was produced using [employer] dictation software. please excuse any grammatical, word or spelling errors. Gemma Gibbs MD PGY-2 IM
--- NOTE | 2024-12-05 19:24 | P.PN ---
Subjective Progress Note Date: 12/05/24 69-year-old male came in with altered mental status. His confusion appears to be more mostly drug-induced or medication induced as patient is awake alert hyperactive. Patient is conversing normally but speaking nonsense. CT of the head showed chronic microvascular ischemic changes. CT angio the head of neck is pending urine drug screen is pending. No information about his home medications at this time patient clinically does not appear to be septic does not have any fever he does not have a leukocytosis chest x-ray showed mild cardiomegaly with hypoventilatory changes patient's above-mentioned chest x-ray findings are secondary to his obesity rather than CHF. Patient does not appear to have any focal neurological deficits. Unable to obtain any review of systems because of his altered mental status 11/23/2024 Patient seen and evaluated in follow-up with sitter at the bedside as patient continues to have erratic behavior and refusing most treatment. Psychiatry consulted for further evaluation and altered mentation. Patient continues to be somewhat altered and confused was talking more. Will also consult neurology and appreciate input and recommendations. Case management/social work consulted as well. Patient is afebrile denies chest pain or shortness of breath. Patient is tolerating diet with no reported nausea or vomiting. Recommend follow-up labs and replace electrolytes as needed. Encourage daily hygiene as patient is odorous and unkempt. 11/24/2024 Patient is seen in follow-up today continues with the sitter at the bedside much more pleasant and having more conversation although continues to be confused and altered. Patient's vital signs are stable and patient is afebrile. Repeat labs this morning reveal a sodium of 141 with a potassium of 4.5, BUN is 9.2 with a creatinine of 0.9, hemoglobin A1c is 5.7, TSH within normal limits at 4.5, treponema screening is negative. Neurology attempted an EEG and has ordered an MRI although patient has refused and is refusing most medications and treatments. Psych to reevaluate the patient as well. IM medications given per psychiatry. 11/25/2024 Patient is seen in follow-up today currently sleeping as patient did receive Zyprexa this morning and underwent EEG. Report is currently pending and neurology along with psychiatry following. Patient is afebrile there is no reports of chest pain or shortness of breath. Patient is tolerating diet and has not had any nausea or vomiting. MRI is ordered and pending although unable to receive as patient is refusing and there is no other family members to prov magdiel consent and neurology ordering repeat CT brain. Initial CT was negative. 11/28/2024 Patient is seen in follow-up today mentation is improving although continues with confusion. Apparently there is a daughter who is working on filing a missing reports claim that she has not talked to him in over a week. Patient is scheduled for MRI today and appears somewhat more agreeable. Continue current medication regimen and psychiatry following as well. Psychiatry reporting he does not meet criteria for psychiatric unit and also does not have capacity for decision-making. Patient is afebrile denies chest pain or shortness of breath. Patient has been tolerating diet with no reported nausea or vomiting. Patient has been up and walking to the bathroom independently. 11/29/2024 Patient is seen and evaluated in follow-up today is pleasant and appropriate and cooperative with care. MRI was negative and neurology following recommending possible LP although Lovenox was given. Will consult pain management/anesthesia for possible LP and patient is agreeable and daughter aware. Social work audi aguila along with psychiatry and psychiatry has signed off recommending that patient does not meet inpatient criteria. Will discuss further with social work once LP is performed to discuss discharge planning and treatment plan moving forward. 11/30/2024 Patient is seen and evaluated this morning scheduled to undergo LP with pain management/anesthesia. Will await report and discuss further with neurology regarding treatment plan moving forward. Psychiatry has evaluated the patient and signed off although patient continues to be confused and per daughter this is not his baseline as he is alert and oriented, lives alone and is independent. Patient with no reports of chest pain or shortness of breath. Patient denying any nausea or vomiting and has been tolerating diet. 12/01/2024 Patient is seen in follow-up today currently pleasant although continues with agitation at times. Neurology following and is status post LP showing protein and glucose minimally elevated. JHOANA t screen is positive and awaiting titer. No reports of chest pain or shortness of breath. Patient reports tolerating diet with no reported nausea or vomiting. Patient has been getting up to the bathroom with no difficulties. Given patient's continued mentation daughter is extremely concerned that this is not his baseline and will reconsult psychiatry for further evaluation. 12/02/2024 Patient is seen in follow-up with no acute overnight issues noted. Per nursing staff patient is pleasant today and cooperative with neurology following recommending to continue to have reevaluation by psychiatry. Psychiatry was consulted again for reevaluation as daughter is extremely concerned about his overall mentation. 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 Patient is afebrile with no reports of chest pain or shortness of breath. Patient has been tolerating diet with no reported nausea or vomiting. Patient is up and walking to the bathroom independently with no difficulties. Will await psychiatry reevaluation and appreciate input and recommendations regarding possible medication adjustments. Family to follow-up with social work after the holiday given insurance is closed to discuss discharge planning and if patient may require AFC placement. 12/03/2024 Patient evaluated today sitting up in the chair. He is awake alert oriented pleasant cooperative. He continues on a course of Zyprexa and Seroquel. Psychiatry reevaluated the patient. He is currently pending follow-up by social work on Thursday to discuss discharge planning and possible AFC placement. 12/04/2024 Patient is evaluated today in follow-up on the medical floor. Patient is awake alert oriented x 1. He continues on a course of Zyprexa and Seroquel. He is currently pending follow-up by social work on Thursday to discuss further discharge planning. He has no acute complaints at this time. 12/05/2024 Patient is seen and evaluated in follow-up today and does not meet criteria for inpatient psych and has received full neurological workup with no abnormal findings noted. Patient is likely dementia with progression and remains pleasantly confused. Plan is for discharge as there is reportedly a brother that reports can stay with him and plan will be for discharge today. Per social work, family was provided with resources in the outpatient setting regarding AFC and other foster care facilities. Social work to follow-up regarding this. Patient is medically stable and will be discharged today. Review of systems: Constitutional: No reports of fatigue, fever, or chills Cardiovascular: No reports of chest pain or palpitations Respiratory: No reports of shortness of breath or cough GI: No reports of nausea, vomiting, or diarrhea : Denies pain or burning or frequency with urination Neurovascular: No reports of weakness or numbness All medications have been reviewed PHYSICAL EXAMINATION: GENERAL: The patient is alert, x 1, hyperactive at times, mentation waxing waning although slightly improved and more cooperative, not in any acute distress. Well developed, well nourished. Elderly appearing gait steady, morbidly obese HEENT: Pupils are round and equally reacting to light. EOMI. No scleral icterus. No conjunctival pallor. Normocephalic, atraumatic. No pharyngeal erythema. No thyromegaly. CARDIOVASCULAR: S1 and S2 muffled PULMONARY: Chest is clear to auscultation, no wheezing or crackles. ABDOMEN: Soft, obese, nontender, nondistended, normoactive bowel sounds. No palpable organomegaly. MUSCULOSKELETAL: No joint swelling or deformity. EXTREMITIES: No cyanosis, clubbing, or pedal edema. NEUROLOGICAL: Gross neurological examination did not reveal any focal deficits. SKIN: No rashes. Assessment: -Altered mental status, possible metabolic/toxic encephalopathy, concerning for dementia versus delirium. UDS was negative. Patient is nontoxic, low possibility of sepsis or stroke. -Ruled out sepsis as patient remains afebrile and white count is not elevated -Ruled out stroke, MRI negative 11/28/2024 -Minimally elevated D-dimer, PE ruled out on CT LP negative -positive JHOANA, titers within normal limits -Morbid, obesity possibility of sleep apnea -GI prophylaxis -DVT prophylaxis: Lovenox - Full code Plan: Patient was admitted with altered mentation with erratic hyperactive behavior with concerns of possible medication or drug induced alteration although patient reports is not taking any medications and denies any drug use. Patient is status post EEG and there was some slowing although no epileptiform discharges or abnormalities noted. Patient is status post MRI of the brain which is negative for acute process and CVA ruled out Apparently there is a daughter who is the patient's power of assistant prosecuting attorney, that was looking for him as he was missing. MRI is negative. Psychiatry reevaluated and reports he does not meet inpatient criteria and they do not treat delirium recommending outpatient follow-up and signed off the case again. Have reconsulted psychiatry once again for further evaluation as patient's family is extremely concerned that this is not his baseline and patient continues to act bizarre and erratic at times. Appears to be a dementia type picture with progression Psychiatry have re-evaluated the patient and signed off. Seroquel daily has been added. Patient is status post LP showing minimally elevated glucose otherwise normal JHOANA screen is positive and JHOANA titer within normal limits. Extensive neurological workup is negative and patient is medically stable for discharge. social work following regarding discharge planning. Awaiting a safe discharge plan and to discuss further with daughter. Daughter is power of assistant prosecuting attorney and n eeds to be notified in the event of needing possible placement or long-term placement. Per social work, patient was provided with outpatient resources such as AFC's and other options for discharge on of last week. Apparently there was a brother that is offering to let him stay with him as well. Social work to follow-up on this. Patient is medically stable and will be discharged today Patient is not allowed to leave AGAINST MEDICAL ADVICE given his mentation. Patient is not able to make any medical decisions at this time and may need a guardian. The impression and plan of care has been dictated by Riddhi Lee, Nurse Practitioner as directed. Dr. Lenore MD I have performed a history and physical examination and medical decision making of this patient, discussed the same with the dictator, and agree with the dictators assessment and plan as written, documented as a scribe. Based on total visit time, I have performed more than 50% of this visit. Objective - Vital Signs Vital signs: Vital Signs Temp 97.8 F 12/05/24 02:00 Pulse 67 12/05/24 02:00 Resp 17 12/05/24 02:00 BP 127/72 12/05/24 02:00 Pulse Ox 99 12/05/24 02:00 FiO2 Intake & Output 12/04/24 12/05/24 12/05/24 18:59 06:59 18:59 Intake Total 680 Balance 680 Intake: Oral 680 Other: Voiding Method Toilet # Voids 4 2 - Labs CBC & Chem 7: 11/30/24 08:01 12/04/24 06:00 Labs: Abnormal Lab Results - Last 24 Hours (Table) 12/04/24 Range/Units 06:00 BUN/Creatinine Ratio 11.44 L (12.00-20.00) Ratio Microbiology - Last 24 Hours (Table) 11/30/24 13:45 CSF Gram Stain - Final Cerebral Spinal Fluid CSF Culture - Final
--- NOTE | 2024-12-05 19:29 | P.DS ---
Providers Date of admission: 11/22/24 13:56 Expected date of discharge: 12/05/24 Attending physician: Jazmin Grover Consults: 11/23/24 14:06 Consult Physician Routine Consulting Provider: Duong García Consult Reason/Comments: Altered mental status Do you want consulting provider notified?: Yes 11/28/24 16:41 Consult Physician Routine Consulting Provider: Psychiatry - [facility] Psychiatry Consult Reason/Comments: AMS, labile, neg MRI, need psych re-eval 11/29 Do you want consulting provider notified?: Yes 11/29/24 15:02 Consult Physician Routine Consulting Provider: Ray Frey Consult Reason/Comments: lumbar puncture, altered mental status Do you want consulting provider notified?: Yes 12/01/24 22:40 Consult Physician Urgent Consulting Provider: Ba Garner Consult Reason/Comments: ams, continued bizarre behavior Do you want consulting provider notified?: Yes Primary care physician: Stated None Hospital Course: Final diagnosis -Altered mental status, possible metabolic/toxic encephalopathy, concerning for dementia versus delirium. UDS was negative. Patient is nontoxic, low possibility of sepsis or stroke. -Ruled out sepsis as patient remains afebrile and white count is not elevated -Ruled out stroke, MRI negative 11/28/2024 -Minimally elevated D-dimer, PE ruled out on CT LP negative -positive JHOANA, titers within normal limits -Morbid, obesity possibility of sleep apnea -GI prophylaxis -DVT prophylaxis: Lovenox - Full code Discharge disposition Patient is being discharged in a stable condition with guarded prognosis to home with family. Patient will follow-up with Dr. Sarath Rojas to establish in the outpatient setting upon discharge. Patient is to continue with outpatient follow-up with community mental health as well as neurology as scheduled. Total time taken is greater than 35 minutes. Hospital course This is a 69-year-old male who was recently admitted for altered mental status metabolic/toxic encephalopathy with delirium and confusion on admission. Patient with erratic bizarre behavior likely dementia that is progressing. Patient did have extensive neurological workup and evaluated by psychiatry multiple times and ultimately negative workup. Social work is following and has been working with daughter who is power of admitted attorneys on discharge planning. Resources were provided last week for outpatient AFC or other options for safe discharge. Family member apparently a brother reported he can go stay with him as social work is following working on discharge. Patient is medically stable and will be discharged with family. Please refer to other consultation notes for further HPI. Strongly recommend continued outpatient community mental health evaluation. Currently no reports of chest pain, shortness of breath, or palpitations. Patient is afebrile. No reports of nausea or vomiting and patient is tolerating diet. Patient's gait has been steady and no neurological deficits noted. Patient will be discharged home today. High risk for readmissions given comorbidities. Physical exam: Gen: This is a 69-year-old male who is awake, alert oriented x 1-2, elderly appearing, obese, well-developed HEENT: Head is atraumatic, normocephalic. Pupils equal, round. Sclerae is anicteric. NECK: Supple. No JVD. No lymphadenopathy. No thyromegaly. LUNGS: Diminished breath sounds bilaterally otherwise clear to auscultation. No wheezes or rhonchi. No intercostal retractions. HEART: S1, S2 are muffled ABDOMEN: Soft. Obese. Bowel sounds are present. No masses. No tenderness. EXTREMITIES: No pedal edema. No calf tenderness. NEUROLOGICAL: Patient is awake, alert and oriented x 1-2. Cranial nerves 2 through 12 are grossly intact. Please refer to medication reconciliation sheet for a list of medications. The impression and plan of care has been dictated by Riddhi Lee, Nurse Practitioner as directed. Dr. Lenore MD I have performed a history and examination and MDM of this patient, discussed the same with the dictator, and agree with the dictator's assessment and plan as written ,documented as a scribe. Based on total visit time, I have performed more than 50% of the visit. Patient Condition at Discharge: Stable Plan - Discharge Summary Discharge Rx Participant: Yes New Discharge Prescriptions: New QUEtiapine [SEROquel] 50 mg PO TID PRN tab PRN Reason: Agitation QUEtiapine [SEROquel] 100 mg PO BID #60 tab Acetaminophen Tab [Tylenol] 650 mg PO Q6HR PRN tab PRN Reason: Fever And/ Or Pain Cyanocobalamin [Vitamin B-12] 1,000 mcg PO DAILY #30 tab Folic Acid 1 mg PO DAILY #30 tab Multivitamins, Thera [Multivitamin (formulary)] 1 each PO DAILY@1200 #30 tab Thiamine [Vitamin B-1] 100 mg PO BID-W/MEALS #60 tab Discharge Medication List Acetaminophen Tab [Tylenol] 650 mg PO Q6HR PRN tab 12/05/24 [Rx] Cyanocobalamin [Vitamin B-12] 1,000 mcg PO DAILY #30 tab 12/05/24 [Rx] Folic Acid 1 mg PO DAILY #30 tab 12/05/24 [Rx] Multivitamins, Thera [Multivitamin (formulary)] 1 each PO DAILY@1200 #30 tab 12/05/24 [Rx] QUEtiapine [SEROquel] 50 mg PO TID PRN tab 12/05/24 [Rx] QUEtiapine [SEROquel] 100 mg PO BID #60 tab 12/05/24 [Rx] Thiamine [Vitamin B-1] 100 mg PO BID-W/MEALS #60 tab 12/05/24 [Rx] Follow up Appointment(s)/Referral(s): Cony Corrigan MD [STAFF PHYSICIAN] - 1 Week Activity/Diet/Wound Care/Special Instructions: Activity limited until follow-up Follow-up with primary care provider to establish Follow-up with neurology outpatient as needed Follow-up with many mental health outpatient Discharge Disposition: HOME SELF-CARE
[2024-12-06 11:32] LABS: Lyme IgG/IgM .045
--- NOTE | 2024-12-06 14:11 | P.DS ---
Providers Date of admission: 11/22/24 13:56 Expected date of discharge: 12/06/24 Attending physician: Jazmin Grover Consults: 11/23/24 14:06 Consult Physician Routine Consulting Provider: Duong García Consult Reason/Comments: Altered mental status Do you want consulting provider notified?: Yes 11/28/24 16:41 Consult Physician Routine Consulting Provider: Psychiatry - [facility] Psychiatry Consult Reason/Comments: AMS, labile, neg MRI, need psych re-eval 11/29 Do you want consulting provider notified?: Yes 11/29/24 15:02 Consult Physician Routine Consulting Provider: Ray Frey Consult Reason/Comments: lumbar puncture, altered mental status Do you want consulting provider notified?: Yes 12/01/24 22:40 Consult Physician Urgent Consulting Provider: Ba Garner Consult Reason/Comments: ams, continued bizarre behavior Do you want consulting provider notified?: Yes Primary care physician: Stated None Hospital Course: Final diagnosis -Altered mental status, possible metabolic/toxic encephalopathy, concerning for dementia versus delirium. UDS was negative. Patient is nontoxic, low possibility of sepsis or stroke. -Ruled out sepsis as patient remains afebrile and white count is not elevated -Ruled out stroke, MRI negative 11/28/2024 -Minimally elevated D-dimer, PE ruled out on CT LP negative -positive JHOANA, titers within normal limits -Morbid, obesity possibility of sleep apnea -GI prophylaxis -DVT prophylaxis: Lovenox - Full code Discharge disposition Patient is being discharged in a stable condition with guarded prognosis to [facility]. Patient will follow-up with PCP to establish in the outpatient setting upon discharge. Patient is to continue with outpatient follow-up with community mental health as well as neurology as scheduled. Total time taken is greater than 35 minutes. Hospital course This is a 69-year-old male who was recently admitted for altered mental status metabolic/toxic encephalopathy with delirium and confusion on admission. Patient with erratic bizarre behavior likely dementia that is progressing. Patient did have extensive neurological workup and evaluated by psychiatry multiple times and ultimately negative workup. Social work is following and has been working with daughter who is power of commercial real estate attorney on discharge planning. Resources were provided last week for outpatient AFC or other options for safe discharge. Family member, apparently a brother reported he can go stay with him as social work is following working on discharge. Apparently this brother is also homeless and will not be able to care for the patient. Patient was evaluated by PT/OT therapy and has been accepted at [facility] and will be discharged today. Please refer to other consultation notes for further HPI. Strongly recommend continued outpatient [facility] mental health evaluation. Currently no reports of chest pain, shortness of breath, or palpitations. Patient is afebrile. No reports of nausea or vomiting and patient is tolerating diet. Patient's gait has been steady and no neurological deficits noted. Patient will be discharged to [facility]. Daughter, power of commercial real estate attorney working on legalities outpatient including possible guardianship. Physical exam: Gen: This is a 69-year-old male who is awake, alert oriented x 1-2, elderly appearing, obese, well-developed HEENT: Head is atraumatic, normocephalic. Pupils equal, round. Sclerae is anicteric. NECK: Supple. No JVD. No lymphadenopathy. No thyromegaly. LUNGS: Diminished breath sounds bilaterally otherwise clear to auscultation. No wheezes or rhonchi. No intercostal retractions. HEART: S1, S2 are muffled ABDOMEN: Soft. Obese. Bowel sounds are present. No masses. No tenderness. EXTREMITIES: No pedal edema. No calf tenderness. NEUROLOGICAL: Patient is awake, alert and oriented x 1-2. Cranial nerves 2 through 12 are grossly intact. Please refer to medication reconciliation sheet for a list of medications. The impression and plan of care has been dictated by Riddhi Lee, Nurse Practitioner as directed. Dr. Lenore MD I have performed a history and examination and MDM of this patient, discussed the same with the dictator, and agree with the dictator's assessment and plan as written ,documented as a scribe. Based on total visit time, I have performed more than 50% of the visit. Patient Condition at Discharge: Stable Plan - Discharge Summary Discharge Rx Participant: Yes New Discharge Prescriptions: New QUEtiapine [SEROquel] 50 mg PO TID PRN tab PRN Reason: Agitation QUEtiapine [SEROquel] 100 mg PO BID #60 tab Acetaminophen Tab [Tylenol] 650 mg PO Q6HR PRN tab PRN Reason: Fever And/ Or Pain Cyanocobalamin [Vitamin B-12] 1,000 mcg PO DAILY #30 tab Folic Acid 1 mg PO DAILY #30 tab Multivitamins, Thera [Multivitamin (formulary)] 1 each PO DAILY@1200 #30 tab Thiamine [Vitamin B-1] 100 mg PO BID-W/MEALS #60 tab Discharge Medication List Acetaminophen Tab [Tylenol] 650 mg PO Q6HR PRN tab 12/05/24 [Rx] Cyanocobalamin [Vitamin B-12] 1,000 mcg PO DAILY #30 tab 12/05/24 [Rx] Folic Acid 1 mg PO DAILY #30 tab 12/05/24 [Rx] Multivitamins, Thera [Multivitamin (formulary)] 1 each PO DAILY@1200 #30 tab 12/05/24 [Rx] QUEtiapine [SEROquel] 50 mg PO TID PRN tab 12/05/24 [Rx] QUEtiapine [SEROquel] 100 mg PO BID #60 tab 12/05/24 [Rx] Thiamine [Vitamin B-1] 100 mg PO BID-W/MEALS #60 tab 12/05/24 [Rx] Follow up Appointment(s)/Referral(s): Cony Corrigan MD [STAFF PHYSICIAN] - 1 Week Activity/Diet/Wound Care/Special Instructions: Activity limited until follow-up Follow-up with primary care provider to establish Follow-up with neurology outpatient as needed Follow-up with many mental health outpatient Discharge Disposition: TRANSFER TO SNF/ECF
--- NOTE | 2024-12-06 19:03 | P.PN ---
Subjective Progress Note Date: 12/06/24 Principal diagnosis: Patient seen and examined at bedside today. Patient is about the same today. Patient is smiling. He is sitting comfortably in the recliner, watching the TV. Vitals signs are stable. JHOANA titer 1:640, speckled pattern. C-ANCA and p-ANCA< 1:20. VZV DNA negative, norovirus 1 and 2 and rhinovirus not detected. Enterovirus PCR negative Objective - Vital Signs Vital signs: Vital Signs Temp 97.8 F 12/06/24 14:00 Pulse 88 12/06/24 14:00 Resp 16 12/06/24 14:00 BP 122/81 12/06/24 14:00 Pulse Ox 99 12/06/24 14:00 FiO2 Intake & Output 12/05/24 12/06/24 12/06/24 18:59 06:59 18:59 Intake Total 598 800 Balance 598 800 Intake: Oral 598 800 Other: Voiding Method Toilet Toilet # Voids 2 3 # Bowel Movements 1 - Exam Patient is alert and awake. He was unable to answer questions quite a ppropriately. He is oriented to himself. Patient not able to tell current month or year. Could not tell what building he is in. He continues to have aphasia. Patient can name, objects like pen, eyeglasses. With repeating phrases, he would repeat part of it and then goes tangential. significant aphasia and repeating self On muscle strength testing, there is no pronator drift and the strength is normal in arms and legs distally and proximally. Deep tendon reflexes are symmetric trace at the biceps, 0 brachioradialis, 1 at the knees and plantars indeterminate Sensory to touch is equal Cerebellar function showed no ataxia for [id number] testing. No dysdiadochokinesia. - Labs CBC & Chem 7: 11/30/24 08:01 12/04/24 06:00 Labs: Microbiology - Last 24 Hours (Table) 11/30/24 15:08 Blood Culture - Final Blood Assessment and Plan Assessment: Acute delirium with with agitation. Unknown etiology. Has positive JHOANA but pending titer and unsure if truly this is causing symptoms. CSF study is unremarkable, nucleated cells are 1. CSF viral panel is negative. HIV is negative. ESR is normal.TSH, folate are within normal limits. MRI Brain is negative for acute process. History of undiagnosed high functioning autism. Dyslexia X-tobacco use Borderline B12/folate. Prostate cancer, declining treatment Depression Plan: EEG was performed, which was abnormal due to background slowing, suggestive of mild encephalopathy. No focal, lateralized or epileptiform activity was seen. Brain MRI obtained yesterday shows no evidence of intracranial mass, acute/subacute infarct or abnormal enhancement, nonspecific white matter changes likely related to small vessel ischemic disease TSH 4.5, hemoglobin A1c 5.7. RPR nonreactive. HSV 1 and 2 negative. Adenovirus and CMV testing negative. JHOANA titer 1:640, speckled pattern. C-ANCA and p-ANCA< 1:20. , norovirus 1, 2 and rhinovirus not detected. Enterovirus PCR negative CSF studies : VZV DNA negative, clear appearance, colorless, 5 RBC, 1 nucleated cell, 57 glucose, 67 protein, VDRL negative, CSF culture negative Await NMDA antibodies B12 275, folate 7.7, Patient's B12 and folate level are borderline. Continue folic acid 1 mg p.o. daily, cyanocobalamin 1000 mcg p.o. daily Psychiatry signed off Neurologically clear for discharge. Recommend follow-up with neurologist outpatient.
--- NOTE | 2024-12-09 04:18 | P.PN ---
Subjective Progress Note Date: 12/08/24 69-year-old male came in with altered mental status. His confusion appears to be more mostly drug-induced or medication induced as patient is awake alert hyperactive. Patient is conversing normally but speaking nonsense. CT of the head showed chronic microvascular ischemic changes. CT angio the head of neck is pending urine drug screen is pending. No information about his home medications at this time patient clinically does not appear to be septic does not have any fever he does not have a leukocytosis chest x-ray showed mild cardiomegaly with hypoventilatory changes patient's above-mentioned chest x-ray findings are secondary to his obesity rather than CHF. Patient does not appear to have any focal neurological deficits. Unable to obtain any review of systems because of his altered mental status 11/23/2024 Patient seen and evaluated in follow-up with sitter at the bedside as patient continues to have erratic behavior and refusing most treatment. Psychiatry consulted for further evaluation and altered mentation. Patient continues to be somewhat altered and confused was talking more. Will also consult neurology and appreciate input and recommendations. Case management/social work consulted as well. Patient is afebrile denies chest pain or shortness of breath. Patient is tolerating diet with no reported nausea or vomiting. Recommend follow-up labs and replace electrolytes as needed. Encourage daily hygiene as patient is odorous and unkempt. 11/24/2024 Patient is seen in follow-up today continues with the sitter at the bedside much more pleasant and having more conversation although continues to be confused and altered. Patient's vital signs are stable and patient is afebrile. Repeat labs this morning reveal a sodium of 141 with a potassium of 4.5, BUN is 9.2 with a creatinine of 0.9, hemoglobin A1c is 5.7, TSH within normal limits at 4.5, treponema screening is negative. Neurology attempted an EEG and has ordered an MRI although patient has refused and is refusing most medications and treatments. Psych to reevaluate the patient as well. IM medications given per psychiatry. 11/25/2024 Patient is seen in follow-up today currently sleeping as patient did receive Zyprexa this morning and underwent EEG. Report is currently pending and neurology along with psychiatry following. Patient is afebrile there is no reports of chest pain or shortness of breath. Patient is tolerating diet and has not had any nausea or vomiting. MRI is ordered and pending although unable to receive as patient is refusing and there is no other family members to pro vide consent and neurology ordering repeat CT brain. Initial CT was negative. 11/28/2024 Patient is seen in follow-up today mentation is improving although continues with confusion. Apparently there is a daughter who is working on filing a missing reports claim that she has not talked to him in over a week. Patient is scheduled for MRI today and appears somewhat more agreeable. Continue current medication regimen and psychiatry following as well. Psychiatry reporting he does not meet criteria for psychiatric unit and also does not have capacity for decision-making. Patient is afebrile denies chest pain or shortness of breath. Patient has been tolerating diet with no reported nausea or vomiting. Patient has been up and walking to the bathroom independently. 11/29/2024 Patient is seen and evaluated in follow-up today is pleasant and appropriate and cooperative with care. MRI was negative and neurology following recommending possible LP although Lovenox was given. Will consult pain management/anesthesia for possible LP and patient is agreeable and daughter aware. Social work following along with psychiatry and psychiatry has signed off recommending that patient does not meet inpatient criteria. Will discuss further with social work once LP is performed to discuss discharge planning and treatment plan moving forward. 11/30/2024 Patient is seen and evaluated this morning scheduled to undergo LP with pain management/anesthesia. Will await report and discuss further with neurology regarding treatment plan moving forward. Psychiatry has evaluated the patient and signed off although patient continues to be confused and per daughter this is not his baseline as he is alert and oriented, lives alone and is independent. Patient with no reports of chest pain or shortness of breath. Patient denying any nausea or vomiting and has been tolerating diet. 12/01/2024 Patient is seen in follow-up today currently pleasant although continues with agitation at times. Neurology following and is status post LP showing protein and glucose minimally elevated. JHOANA t screen is positive and awaiting titer. No reports of chest pain or shortness of breath. Patient reports tolerating diet with no reported nausea or vomiting. Patient has been getting up to the bathroom with no difficulties. Given patient's continued mentation daughter is extremely concerned that this is not his baseline and will reconsult psychiatry for further evaluation. 12/02/2024 Patient is seen in follow-up with no acute overnight issues noted. Per nursing staff patient is pleasant today and cooperative with neurology following recommending to continue to have reevaluation by psychiatry. Psychiatry was consulted again for reevaluation as daughter is extremely concerned about his overall mentation. 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 Patient is afebrile with no reports of chest pain or shortness of breath. Patient has been tolerating diet with no reported nausea or vomiting. Patient is up and walking to the bathroom independently with no difficulties. Will await psychiatry reevaluation and appreciate input and recommendations regarding possible medication adjustments. Family to follow-up with social work after the holiday given insurance is closed to discuss discharge planning and if patient may require AFC placement. 12/03/2024 Patient evaluated today sitting up in the chair. He is awake alert oriented pleasant cooperative. He continues on a course of Zyprexa and Seroquel. Psychiatry reevaluated the patient. He is currently pending follow-up by social work on Thursday to discuss discharge planning and possible AFC placement. 12/04/2024 Patient is evaluated today in follow-up on the medical floor. Patient is awake alert oriented x 1. He continues on a course of Zyprexa and Seroquel. He is currently pending follow-up by social work on Thursday to discuss further discharge planning. He has no acute complaints at this time. 12/05/2024 Patient is seen and evaluated in follow-up today and does not meet criteria for inpatient psych and has received full neurological workup with no abnormal findings noted. Patient is likely dementia with progression and remains pleasantly confused. Plan is for discharge as there is reportedly a brother that reports can stay with him and plan will be for discharge today. Per social work, family was provided with resources in the outpatient setting regarding AFC and other foster care facilities. Social work to follow-up regarding this. Patient is medically stable and will be discharged today. 12/08/2024 Patient is seen and evaluated in follow-up today with no acute issues noted. Patient initially was accepted at [facility] pending insurance authorization which apparently was denied as patient has no skilled needs to go to [facility]. Social work following discussed with family about other options and resources such as AFC on discharge. Social work did provide daughter who is POA with these resources last week and unsure if she followed up. Will discuss further with family and plan will be for discharge home with family as patient is medically stable and has been cleared for discharge. Patient is afebrile with no reports of chest pain or shortness of breath. Patient has been tolerating diet. Patient has been up and walking to the bathroom independently. Review of systems: Constitutional: No reports of fatigue, fever, or chills Cardiovascular: No reports of chest pain or palpitations Respiratory: No reports of shortness of breath or cough GI: No reports of nausea, vomiting, or diarrhea : Denies pain or burning or frequency with urination Neurovascular: No reports of weakness or numbness All medications have been reviewed PHYSICAL EXAMINATION: GENERAL: The patient is alert, x 1, hyperactive at times, mentation waxing waning although slightly improved and more cooperative, not in any acute distress. Well developed, well nourished. Elderly appearing gait steady, morbidly obese HEENT: Pupils are round and equally reacting to light. EOMI. No scleral icterus. No conjunctival pallor. Normocephalic, atraumatic. No pharyngeal erythema. No thyromegaly. CARDIOVASCULAR: S1 and S2 muffled PULMONARY: Chest is clear to auscultation, no wheezing or crackles. ABDOMEN: Soft, obese, nontender, nondistended, normoactive bowel sounds. No palpable organomegaly. MUSCULOSKELETAL: No joint swelling or deformity. EXTREMITIES: No cyanosis, clubbing, or pedal edema. NEUROLOGICAL: Gross neurological examination did not reveal any focal deficits. SKIN: No rashes. Assessment: -Altered mental status, possible metabolic/toxic encephalopathy, concerning for dementia versus delirium. UDS was negative. Patient is nontoxic, low possibility of sepsis or stroke. -Ruled out sepsis as patient remains afebrile and white count is not elevated -Ruled out stroke, MRI negative 11/28/2024 -Minimally elevated D-dimer, PE ruled out on CT LP negative -positive JHOANA, titers within normal limits -Morbid, obesity possibility of sleep apnea -GI prophylaxis -DVT prophylaxis: Lovenox - Full code Plan: Patient was admitted with altered mentation with erratic hyperactive behavior wi concerns of possible medication or drug induced alteration although patient reports is not taking any medications and denies any drug use. Patient has been evaluated by neurology underwent full neurological including MRI, LP, EEG which have all been negative and patient has been cleared by the outpatient follow-up Psychiatry has evaluated the patient stating he does not meet inpatient criteria and also does not have decision-making capacity. Daughter is power of workers compensation attorney and this was discussed with her regarding possible guardianship patient's family is extremely concerned that this is not his baseline and patient continues to act bizarre and erratic at times. Appears to be a dementia type picture with progression social work following regarding discharge planning. Awaiting a safe discharge plan and to discuss further with daughter. Daughter is power of workers compensation attorney and needs to be notified in the event of needing possible placement or long-term placement. Per social work, patient was provided with outpatient resources such as AFC's and other options for discharge on before November weekend. Patient is medically stable and was attempting [facility] although insurance authorization was denied as patient currently has no skill level needs. Will discuss further with family and plan on discharging home with family in the next 24 to 48 hours Patient is not allowed to leave AGAINST MEDICAL ADVICE given his mentation. Patient is not able to make any medical decisions at this time and may need a guardian. The impression and plan of care has been dictated by Riddhi Lee, Nurse Practitioner as directed. Dr. Lenore MD I have performed a history and physical examination and medical decision making of this patient, discussed the same with the dictator, and agree with the dictators assessment and plan as written, documented as a scribe. Based on total visit time, I have performed more than 50% of this visit. Objective - Vital Signs Vital signs: Vital Signs Temp 97.7 F 12/08/24 07:16 Pulse 74 12/08/24 07:16 Resp 16 12/08/24 08:37 BP 130/79 12/08/24 07:16 Pulse Ox 99 12/08/24 07:16 FiO2 Intake & Output 12/07/24 12/08/24 12/08/24 18:59 06:59 18:59 Intake Total 716 Balance 716 Intake: Oral 716 Other: Voiding Method Toilet Toilet Toilet # Voids 2 2 - Labs CBC & Chem 7: 11/30/24 08:01 12/04/24 06:00
[2024-12-09 08:01] VITALS: RESP 17
[2024-12-09 14:25] VITALS: BP 124/84; PULSE 94; TEMP 97.9
--- NOTE | 2024-12-09 20:37 | P.DS ---
Providers Date of admission: 11/22/24 13:56 Expected date of discharge: 12/09/24 Attending physician: Jazmin Grover Consults: 11/23/24 14:06 Consult Physician Routine Consulting Provider: Duong García Consult Reason/Comments: Altered mental status Do you want consulting provider notified?: Yes 11/28/24 16:41 Consult Physician Routine Consulting Provider: Psychiatry - [facility] Psychiatry Consult Reason/Comments: AMS, labile, neg MRI, need psych re-eval 11/29 Do you want consulting provider notified?: Yes 11/29/24 15:02 Consult Physician Routine Consulting Provider: Ray Frey Consult Reason/Comments: lumbar puncture, altered mental status Do you want consulting provider notified?: Yes 12/01/24 22:40 Consult Physician Urgent Consulting Provider: Ba Garner Consult Reason/Comments: ams, continued bizarre behavior Do you want consulting provider notified?: Yes Primary care physician: Stated None Hospital Course: Final diagnosis -Altered mental status, possible metabolic/toxic encephalopathy, concerning for dementia versus delirium. UDS was negative. Patient is nontoxic, low possibility of sepsis or stroke. -Ruled out sepsis as patient remains afebrile and white count is not elevated -Ruled out stroke, MRI negative 11/28/2024 -Minimally elevated D-dimer, PE ruled out on CT LP negative -positive JHOANA, titers within normal limits -Morbid, obesity possibility of sleep apnea -GI prophylaxis -DVT prophylaxis: Lovenox - Full code Discharge disposition Patient is being discharged in a stable condition with guarded prognosis to home with family and home care being arranged. Patient will follow-up with PCP to establish in the outpatient setting upon discharge. Patient is to continue with outpatient follow-up with community mental health as well as neurology as scheduled. Daughter POA to look further into AFC homes. Total time taken is greater than 35 minutes. Hospital course This is a 69-year-old male who was recently admitted for altered mental status metabolic/toxic encephalopathy with delirium and confusion on admission. Patient with erratic bizarre behavior likely dementia that is progressing. Patient did have extensive neurological workup and evaluated by psychiatry multiple times and ultimately negative workup. Social work is following and has been working with daughter who is power of tax associate attorney on discharge planning. Resources were provided last week for outpatient AFC or other options for safe discharge. Family member, apparently a brother reported he can go stay with him as social work is following working on discharge. Apparently this brother is also homeless and will not be able to care for the patient. Patient was evaluated by PT/OT therapy and has no skilled will needs an insurance authoriz ation to [facility] has been denied. Please refer to other consultation notes for further HPI. Strongly recommend continued outpatient community mental health evaluation. Currently no reports of chest pain, shortness of breath, or palpitations. Patient is afebrile. No reports of nausea or vomiting and patient is tolerating diet. Patient's gait has been steady and no neurological deficits noted. Patient will be discharged to home with home care with family. Daughter, Lela, power of tax associate attorney working on legalities outpatient including possible guardianship. Further resources provided to look into [facility] homes or long-term care. Physical exam: Gen: This is a 69-year-old male who is awake, alert oriented x 1-2, elderly appearing, obese, well-developed HEENT: Head is atraumatic, normocephalic. Pupils equal, round. Sclerae is anicteric. NECK: Supple. No JVD. No lymphadenopathy. No thyromegaly. LUNGS: Diminished breath sounds bilaterally otherwise clear to auscultation. No wheezes or rhonchi. No intercostal retractions. HEART: S1, S2 are muffled ABDOMEN: Soft. Obese. Bowel sounds are present. No masses. No tenderness. EXTREMITIES: No pedal edema. No calf tenderness. NEUROLOGICAL: Patient is awake, alert and oriented x 1-2. Cranial nerves 2 through 12 are grossly intact. Please refer to medication reconciliation sheet for a list of medications. The impression and plan of care has been dictated by Riddhi Lee, Nurse Practitioner as directed. Dr. Lenore MD I have performed a history and examination and MDM of this patient, discussed the same with the dictator, and agree with the dictator's assessment and plan as written ,documented as a scribe. Based on total visit time, I have performed more than 50% of the visit. Patient Condition at Discharge: Stable Plan - Discharge Summary Discharge Rx Participant: Yes New Discharge Prescriptions: New QUEtiapine [SEROquel] 50 mg PO TID PRN tab PRN Reason: Agitation QUEtiapine [SEROquel] 100 mg PO BID #60 tab Acetaminophen Tab [Tylenol] 650 mg PO Q6HR PRN tab PRN Reason: Fever And/ Or Pain Cyanocobalamin [Vitamin B-12] 1,000 mcg PO DAILY #30 tab Folic Acid 1 mg PO DAILY #30 tab Multivitamins, Thera [Multivitamin (formulary)] 1 each PO DAILY@1200 #30 tab Thiamine [Vitamin B-1] 100 mg PO BID-W/MEALS #60 tab Discharge Medication List Acetaminophen Tab [Tylenol] 650 mg PO Q6HR PRN tab 12/05/24 [Rx] Cyanocobalamin [Vitamin B-12] 1,000 mcg PO DAILY #30 tab 12/05/24 [Rx] Folic Acid 1 mg PO DAILY #30 tab 12/05/24 [Rx] Multivitamins, Thera [Multivitamin (formulary)] 1 each PO DAILY@1200 #30 tab 12/05/24 [Rx] QUEtiapine [SEROquel] 50 mg PO TID PRN tab 12/05/24 [Rx] QUEtiapine [SEROquel] 100 mg PO BID #60 tab 12/05/24 [Rx] Thiamine [Vitamin B-1] 100 mg PO BID-W/MEALS #60 tab 12/05/24 [Rx] Follow up Appointment(s)/Referral(s): Cony Corrigan MD [STAFF PHYSICIAN] - 1 Week [place] Denise MD [Medical Doctor] - 1 Week Activity/Diet/Wound Care/Special Instructions: Activity limited until follow-up Follow-up with primary care provider to establish Follow-up with neurology outpatient as needed Follow-up with many mental health outpatient Discharge/Stand Alone Forms: Who Do I Call?, Adult Foster Long Term List, Assisted Living Facilities, Community Resources, Help In The Home Discharge Disposition: HOME SELF-CARE
== END 2024-12-09 18:20 | disposition home or self-care (01) | DRG 884 ==
LOC: EC 10:07 → 4SSUR 13:56 → EEVIPCON 13:56 → 6NMEDSUR 15:30
PROVIDERS: ADMIT Internal Medicine; ATTEND Internal Medicine
PROC: 009U3ZX Drainage of Spinal Canal, Percutaneous Approach, Diagnostic (ICD-10-PCS; principal; 2024-11-30)
DX: F03.918 Unspecified dementia, unspecified severity, with other behavioral disturbance (principal); G92.8 Other toxic encephalopathy; C61 Malignant neoplasm of prostate; E66.01 Morbid (severe) obesity due to excess calories; I10 Essential (primary) hypertension; F32.A Depression, unspecified; F84.0 Autistic disorder; Z68.31 Body mass index [BMI] 31.0-31.9, adult; R48.0 Dyslexia and alexia; G47.00 Insomnia, unspecified; Z87.891 Personal history of nicotine dependence; Z79.899 Other long term (current) drug therapy
CPT/HCPCS: 36415; 70450; 70496; 70498; 70553; 71046; 71275; 80048; 80053; 80306; 80320; 81003; 82550; 82607; 82746; 82945; 83036; 83735; 83873; 84145; 84157; 84443; 84484; 85025; 85379; 85610; 85652; 85730; 86038; 86039; 86140; 86255; 86592; 86618; 86780; 87040; 87070; 87205; 87390; 87529; 89050; 93005; 95816; 96360; 96361; 99285